=== PATIENT | male | born 1955 | race Caucasian/White ===

== ENCOUNTER → 2016-07-02 | Outpatient (CLI) | payer BC ==
[~2016-07-02] MED LIST: AMLO2.5T PO; BNC/4025 PO; OXYC-57 PO
[2016-07-02 13:38] LABS: BASO % 0.3 %; BASO ABS # 0.02 K/uL (0-0.2); COMPLETE YES; EOS % 2.5 %; HEMATOCRIT 42.4 % (42-52); IG% 0.1 %; LYMPH ABS # 1.98 K/uL (1.2-3.4); MEAN CELL VOLUME 85.8 fL (80-100); MEAN CORPUSCULAR HEMOGLOBIN 29.1 pg (25-34); MONO % 5.5 %; NEUT % 63.6 %; PLATELET COUNT 229 K/uL (130-400); RED BLOOD COUNT 4.94 M/uL (4.7-6.1); WHITE BLOOD COUNT 7.06 K/uL (4.8-10.8)
[2016-07-02 13:59] LABS: BLOOD UREA NITROGEN 18 mg/dl (7-18); CALCIUM 9.1 mg/dl (8.5-10.1); CARBON DIOXIDE 29 mmol/L (21-32); CHLORIDE 102 mmol/L (98-107); GLUCOSE 141 mg/dl (70-99); POTASSIUM 3.7 mmol/L (3.5-5.1); SODIUM 138 mmol/L (136-145)
[2016-07-02 14:00] LABS: ESTIMATED AVERAGE GLUCOSE 140 mg/dl; HA1C FLAG Normal (Normal)
== END | disposition home or self-care (01) ==
LOC: C.LABBC 12:06
PROVIDERS: ATTEND Internal Medicine Geriatric Medicine
DX: K40.90 Unilateral inguinal hernia, without obstruction or gangrene, not specified as recurrent (principal); E78.5 Hyperlipidemia, unspecified; Z01.818 Encounter for other preprocedural examination; J45.909 Unspecified asthma, uncomplicated; R73.9 Hyperglycemia, unspecified

== ENCOUNTER → 2016-07-19 | Outpatient (CLI) | payer BC ==
[~2016-07-19] VITALS: Ht 175.3 cm; Wt 112.5 kg
[2016-07-19 15:13] VITALS: Ht 175.3 cm; Wt 112.5 kg
== END | disposition home or self-care (01) ==
LOC: C.NRED 09:51
PROVIDERS: ATTEND Internal Medicine Geriatric Medicine
DX: E11.9 Type 2 diabetes mellitus without complications (principal)

== ENCOUNTER → 2016-10-11 | Outpatient (CLI) | payer BC ==
[~2016-10-11] VITALS: Ht 175.3 cm; Wt 115.0 kg
[2016-10-13 12:11] VITALS: Ht 175.3 cm; Wt 115.0 kg
== END | disposition home or self-care (01) ==
LOC: C.NRED 09:10
PROVIDERS: ATTEND Physician Assistant Medical
DX: E11.9 Type 2 diabetes mellitus without complications (principal)

== ENCOUNTER → 2016-12-14 | Outpatient (CLI) | payer BC ==
--- NOTE | 2016-12-14 15:53 | DIAGNOSTIC IMAGING REPORT ---
(CHEST) THORAX WITHOUT CLINICAL HISTORY: MULTIPLE PULMONARY NODULES COMPARISON STUDY: 12/17/2015 , 12/12/2014 CT DOSE: 552.39 mGycm TECHNIQUE: CT of the thorax was performed from the thoracic inlet to the lung bases. Images are reviewed in the axial, sagittal, and coronal planes. IV contrast was not administered for this examination. A dose lowering technique was utilized adhering to the principles of ALARA. FINDINGS: Thyroid: Imaged portions of the thyroid gland are normal in appearance. Thoracic aorta: The ascending thoracic aorta measures 38 mm. Heart: There are coronary artery calcifications present. Lungs and pleural spaces: No pleural effusions are visualized. There is a stable 5 x 7 mm left lower lobe pulmonary nodule as visualized in image #[id number]. There is a stable 3 mm right lower lobe pulmonary nodule as visualized in image #[id number]. There is a stable 5 mm left lower lobe pulmonary nodule as visualized in image #[id number]. No new or enlarging pulmonary nodules are visualized. There is no evidence of focal pulmonary consolidation. Mediastinum: There is no mediastinal lymphadenopathy. Laura: There is no evidence of pathologic hilar adenopathy given the limitations of a noncontrast study. Axilla: There is no evidence of pathologic axillary lymphadenopathy. Upper abdomen: Partially visualized upper abdominal viscera is within normal limits. Skeletal structures: There are no lytic or blastic osseous lesions. IMPRESSION: 1. Bilateral subcentimeter solid pulmonary nodules, demonstrating 2 year stability. These nodules are therefore felt to be benign. 2. No evidence of acute parenchymal consolidation. No evidence of pathologic adenopathy. Electronically signed by: Trevor Tyson M.D. 12/14/2016 3:51 PM Dictated Date/Time: 12/14/2016 3:41 PM
== END | disposition home or self-care (01) ==
LOC: C.CTS 15:22
PROVIDERS: ATTEND Internal Medicine Geriatric Medicine
DX: R91.8 Other nonspecific abnormal finding of lung field (principal)

== ENCOUNTER → 2017-04-28 | Outpatient (CLI) | payer BC ==
[2017-04-28 11:11] LABS: ALT/SGPT 30 U/L (12-78); AST/SGOT 14 U/L (15-37); BLOOD UREA NITROGEN 19 mg/dl (7-18); BUN/CREATININE RATIO 17.4 (10-20); CALCIUM 9.2 mg/dl (8.5-10.1); CARBON DIOXIDE 29 mmol/L (21-32); CHLORIDE 103 mmol/L (98-107); CREATININE 1.08 mg/dl (0.60-1.40); GLUCOSE 115 mg/dl (70-99); POTASSIUM 4.4 mmol/L (3.5-5.1); SODIUM 137 mmol/L (136-145)
[2017-04-28 11:18] LABS: BASO % 0.5 %; BASO ABS # 0.04 K/uL (0-0.2); COMPLETE YES; EOS % 2.8 %; HEMATOCRIT 41.3 % (42-52); IG% 0.1 %; LYMPH % 27.9 %; MEAN CELL VOLUME 88.4 fL (80-100); MEAN CORPUSCULAR HGB CONC 33.9 g/dl (32-36); MEAN PLATELET VOLUME 10.5 fL (7.4-10.4); MONO % 5.6 %; NEUT % 63.1 %; PLATELET COUNT 234 K/uL (130-400); RED BLOOD COUNT 4.67 M/uL (4.7-6.1); WHITE BLOOD COUNT 7.54 K/uL (4.8-10.8)
[2017-04-28 11:22] LABS: ALB/GLOB RATIO 1.2 (0.9-2); ALKALINE PHOSPHATASE 70 U/L (45-117); CHOLESTEROL 121 mg/dl (0-200); CHOLESTEROL/HDL RATIO 3.6; HDL CHOLESTEROL 34 mg/dl; LDL CHOLESTEROL CALCULATED 55 mg/dl; PROSTATE SPECIFIC ANTIGEN 0.624 ng/ml (0.000-4.000); TRIGLYCERIDES 159 mg/dl (0-150); VERY LOW DENSITY LIPOPROT CALC 32 mg/dl
[2017-04-28 11:25] LABS: ESTIMATED AVERAGE GLUCOSE 140 mg/dl; HA1C FLAG Normal (Normal)
== END | disposition home or self-care (01) ==
LOC: C.LABBC 09:02
PROVIDERS: ATTEND Internal Medicine Geriatric Medicine
DX: I10 Essential (primary) hypertension (principal); N20.0 Calculus of kidney; I25.10 Atherosclerotic heart disease of native coronary artery without angina pectoris; E78.5 Hyperlipidemia, unspecified; R91.8 Other nonspecific abnormal finding of lung field; N40.0 Benign prostatic hyperplasia without lower urinary tract symptoms; E11.9 Type 2 diabetes mellitus without complications; Z00.00 Encounter for general adult medical examination without abnormal findings

== ENCOUNTER → 2017-08-29 | Outpatient (CLI) | payer BC, OTHER ==
[2017-08-29 13:57] LABS: BLOOD UREA NITROGEN 15 mg/dl (7-18); CALCIUM 9.5 mg/dl (8.5-10.1); CARBON DIOXIDE 29 mmol/L (21-32); GLUCOSE 123 mg/dl (70-99); POTASSIUM 3.6 mmol/L (3.5-5.1); SODIUM 139 mmol/L (136-145)
[2017-08-29 14:08] LABS: HEMOGLOBIN A1C 6.6 % (4.5-5.6)
== END | disposition home or self-care (01) ==
LOC: C.LABBC 11:35
PROVIDERS: ATTEND Internal Medicine Geriatric Medicine
DX: I10 Essential (primary) hypertension (principal); E11.9 Type 2 diabetes mellitus without complications

== ENCOUNTER 2020-04-30 00:58 | Inpatient (IN) ==
[2020-04-30] MEDS ORDERED: HYDROmorphone INJ 1 MG/ML SYRINGE IV STA ×3 (01:17→03:40)
[2020-04-30] MEDS ORDERED: SODIUM CHLORIDE 0.9% 1000ML 1,000 ML IV ONE ×2 (01:17→02:19)
[2020-04-30] MEDS ORDERED: ONDANSETRON INJ 2 MG/ML 2 ML VIAL IV STA (01:17)
--- NOTE | 2020-04-30 01:23 | Emergency Department Note ---
Impression & Plan COVID-19, Intractable abdominal pain, Elevated liver enzymes, Acute GI bleeding ED Provider Note Name: RAMIRO DYE Age: 65 Sex: M Arrives Via: Walk-In Informant: Patient (difficult at times due to severely hard of hearing patient) ED Provider: Luis Au MD Chief Complaint: Abdominal pain Impression: Covid-19 Intractable abdominal pain Elevated Liver Enzymes Acute GI Bleed Medical Decision Makin yr old very hard of hearing male with history of CAD, DMII, DLP, HTN, Asthma and previous colon resection/appendecomty/cholecystecomty arrives for diffuse abdominal pain. Associated with bloody stool and nausea. Quite uncomfortable on arrival with diffuse vague abdominal TTP without peritonitis. Rectal exam without any stool though no over blood nor hemorrhoids noted. Fluids and IV pain medications given, CT abd/pel obtained and labs obtained. Requiring multiple rounds IV narcotics without clear etiology of pain. CT without intraabdominal issue though he does have ground glass findings on lung windows. Covid testing confirms COVID 19 positive. With continued abdominal pain, reported GI Bleeding, elevated LFTs and on top of this covid 19, discussed with hospitalist who will bring in for further management. No indication there is bleeding dyscrasia. He does not have evidence ischemia on CT a/p. There is no evidence sepsis at this time. CXR obtained consistent with COVID. No hypoxia thus hold on steroids/type-screen. Prior Medical Record and Triage/Nursing Notes reviewed by Me Additional history obtained from chart Differentials:infections, diverticulitis, UTI, obstruction, mesenteric ischemia, aortic pathology, inflammatory bowel disease, renal colic, PUD, pancreatitis, biliary pathology, hernia, volvulus, constipation, as well as other pathologies. amongst other pathologies. Vital Signs: reviewed and remarkable for no significant abnormalities Interventions: Saline lock, NSS Bolus, Dilaudid 1mg IV x 3, Pepcid 20mg IV Labs:Reviewed and remarkable for elevated LFTs, COVID Positive Imaging:[facility] Radiologist interpretation reviewed by me: "CT ABDOMEN & PELVIS With Contrast: Comparison to April 10, 2018. There are rounded patchy groundglass opacities in the periphery of the lung bases bilaterally typical of mild Covid 19 pneumonia. Slight biliary duct prominence postcholecystectomy. No choledocholithiasis is seen. Bowel loops are nondilated. There is mild diverticulosis of the lower left:. No acute inflammatory changes are seen within the abdomen or pelvis. Mild degenerative changes are seen throughout the thoracic spine. No fracture or subluxation. Radiologist: Mehdi Hooks MD" X ray results are stated below per my interpretation: Chest: 1 view: Bilateral patchy infiltrates consistent with viral etiology Consults:Dr Kevin PABLO Hospitalist Plan: Disposition:Hospitalization. Condition: Good History of Present Illness:65 yr old male arrives for evaluation of abdominal pain. Patient notes he woke up this morning (~18 hrs ago) with diffuse abdominal pain. Worse win LLQ. Associated with nausea. Gradually worsening throughout the day. Noted what looked like blood in his urine this evening as well as possibly blood in his stool. No history of this happening previously. Denies trauma, injuries, falls. Denies vomiting, sob, cp, headache, neck pain, back pain, dyuria, diarrhea, leg swelling, rash nor other symptoms. Movement makes worse, rest makes better. No medications taken for this. Notes previous a bdominal surgery including colon resection, appendectomy, cholecystectomy. ROS: See above HPI for pertinent positives & negatives. A total of 10 systems reviewed and were otherwise negative. Past Medical History:HTN, DMII, DLP, CAD, Asthma Past Surgical History:Hip replacement, colon resection, appendectomy, cholecy stectomy, umbilical hernia repair Family History:Father DMII/CAD Social History:Non smoker, no etoh, hard of hearing Home Medications:See Below Allergies:See Below Vitals:Blood Pressure: 147/80, Pulse 81, RR 16, T 36.8C, O2 97% on RA Physical Exam: GENERAL: Patient is uncomfortable appearing and in moderate distress. Dehydrated appearing EYES: No scleral icterus, unremarkable pupils. ENT: Mucous membranes dry, no nasal congestion. NECK: No masses appreciated, nomeningismus, trachea is midline. RESPIRATORY: No dyspnea. Clear to auscultation and equal bilaterally. No wheeze, no rhonchi. CARDIOVASCULAR: Regular rate and rhythm.No murmurs, rubs, gallops appreciated. GASTROINTESTINAL: Diffuse vague TTP, otherwise abdomen soft, no peritonitis.Bowel sounds positive.No masses appreciated. RECTAL: Normal tone, no stool. No hemorrhoids/bleeding appreciated. BACK: No midline tenderness, no CVA tenderness EXTREMITIES: Normal motion all extremities, no cyanosis, no edema. NEUROLOGIC: Severely hard of hearing. Alert and oriented, no acute motor or sensory deficits, no focal weakness, cranial nerves grossly intact. SKIN: No rash, no jaundice, no diaphoresis. PSYCH: Appropriate GCS: 15 ED Course: Times/Reassessments: continued waxing/waning pain throughout controlled for short times with pain medications. Luis Au MD Past Med/Surg History Medical History (Updated 04/30/20 @ 05:27 by Luis Au MD) Benign enlargement of prostate Coronary artery calcification Diverticulosis of colon Dyslipidemia Hx of GI malignancy NEC Hypertension Multiple pulmonary nodules benign, Last CT 2017 Obesity, Class II, BMI 35-39.9 Osteoarthritis Reactive airway disease Small bowel obstruction Surgical History (Updated 09/11/19 @ 14:45 by Giselle Martínez) H/O colonoscopy H/O umbilical hernia repair History of appendectomy History of colon resection (~2011) History of total hip replacement left Hx of cholecystectomy Family History (Updated 09/11/19 @ 14:47 by Giselle Martínez) Father Diabetes Unknown Cardiac disorder Social History (Updated 11/29/19 @ 14:53 by Giselle Martínez) Smoking Status: Never smoker Second Hand Exposure: No; Hx Alcohol Use: No Hx Substance Use: No Preferred Language: Singaporean Communication Ability: Effective Visual Impairment: Limited Hearing Ability: Hard of Hearing 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 Required: No Beliefs That Will Affect Care: None Current Living Situation: Alone Feels Safe at Home: Yes Assistive Devices: Glasses Allergies Allergies Allergy/AdvReac Type Severity Reaction Status Date / Time ketorolac Allergy Intermediate FACIAL Verified 04/30/20 02:08 SWELLING,RASH Penicillins Allergy Mild RASH Verified 04/30/20 02:08 Cipro Allergy Unknown HIVES Verified 03/20/14 07:25 ciprofloxacin Allergy Unknown HIVES Verified 04/30/20 02:08 levofloxacin [From Levaquin] AdvReac Intermediate nausea, Unverified 04/30/20 02:08 tremor codeine AdvReac Unknown "SICK AND Verified 04/30/20 02:08 LIGHTHEADED" morphine AdvReac Unknown "SICK AND Verified 04/30/20 02:08 LIGHTHEADED" Home Meds Home Medications Medication Instructions Recorded Confirmed aspirin 81 mg tablet,delayed 81 mg PO DAILY 11/29/19 04/30/20 release geriatric [id number] 1 tab PO DAILY 04/30/20 04/30/20 [[facility]] Previous Rx's Medication Instructions Recorded amlodipine 10 mg tablet 10 mg PO DAILY #90 tab 02/14/20 losartan 100 1 tab PO DAILY #90 tab 02/14/20 mg-hydrochlorothiazide 25 mg tablet atorvastatin 10 mg tablet 10 mg PO DAILY #90 tab 02/15/20 metformin 500 mg tablet,extended 500 mg PO QPM #90 tab 04/10/20 release 24 hr Results & Data (ED) Vital Signs Vital Signs - 24 hr 04/30/20 01:04 04/30/20 01:27 04/30/20 01:59 Temperature 36.8 C Temperature Source Temporal Artery Scan Pulse Rate 66 75 75 Pulse Rate from SpO2 Sensor Respiratory Rate 16 24 16 Respiratory Depth Normal Blood Pressure 168/88 H 171/93 H 138/87 Blood Pressure Mean 114 123 113 Pulse Oximetry 99 98 97 Oxygen Delivery Method Room Air Room Air Sepsis Recent Fever Within 48 Hours No Sepsis New/Unexplained Change in Mental Status No Sepsis Action Taken by Nursing No Action Required 04/30/20 02:02 04/30/20 03:00 04/30/20 03:30 Temperature Temperature Source Pulse Rate 77 61 79 Pulse Rate from SpO2 Sensor 57 L 65 Respiratory Rate 19 16 16 Respiratory Depth Blood Pressure 115/83 Blood Pressure Mean 92 Pulse Oximetry 95 96 94 Oxygen Delivery Method Sepsis Recent Fever Within 48 Hours Sepsis New/Unexplained Change in Mental Status Sepsis Action Taken by Nursing 04/30/20 03:39 04/30/20 03:40 04/30/20 04:00 Temperature Temperature Source Pulse Rate 81 73 69 Pulse Rate from SpO2 Sensor 79 66 70 Respiratory Rate 16 16 11 L Respiratory Depth Blood Pressure 147/80 H 143/93 H Blood Pressure Mean 106 109 Pulse Oximetry 97 97 93 Oxygen Delivery Method Sepsis Recent Fever Within 48 Hours Sepsis New/Unexplained Change in Mental Status Sepsis Action Taken by Nursing 04/30/20 04:01 04/30/20 04:30 Temperature Temperature Source Pulse Rate 68 78 Pulse Rate from SpO2 Sensor 67 Respiratory Rate 14 20 Respiratory Depth Blood Pressure Blood Pressure Mean Pulse Oximetry 95 Oxygen Delivery Method Sepsis Recent Fever Within 48 Hours Sepsis New/Unexplained Change in Mental Status Sepsis Action Taken by Nursing Laboratory Data Result diagrams: 04/30/20 01:19 04/30/20 01:19 Lab Results 04/30/20 04/30/20 04/30/20 Range/Units 00:19 01:19 01:19 WBC 4.61 L (4.8-10.8) K/uL RBC 5.18 (4.7-6.1) M/uL Hgb 15.9 (14.0-18.0) g/dL POC Hgb (14.0-18.0) g/dl Hct 44.7 (42-52) % POC Hct (42-52) % MCV 86.3 (80-100) fL MCH 30.7 (25-34) pg MCHC 35.6 (32-36) g/dL RDW Std Deviation 44.4 (36.4-46.3) fL RDW Coeff of Shanice 14.1 (11.5-14.5) % Plt Count 218 (130-400) K/uL MPV 10.4 (7.4-10.4) fL Immature Gran % (Auto) 0.2 % Neut % (Auto) 49.4 % Lymph % (Auto) 36.9 % Riley % (Auto) 11.3 % Eos % (Auto) 2.0 % Baso % (Auto) 0.2 % Neut # (Auto) 2.28 (1.4-6.5) K/uL Lymph # (Auto) 1.70 (1.2-3.4) K/uL Riley # (Auto) 0.52 (0.11-0.59) K/uL Eos # (Auto) 0.09 (0-0.5) K/uL Baso # (Auto) 0.01 (0-0.2) K/uL Immature Gran # (Auto) 0.01 (0.00-0.02) K/uL ESR 16 H (0-14) mm/hr PT 11.6 (9.0-12.0) Seconds INR 1.1 (0.9-1.1) APTT (21.0-31.0) Seconds PTT Ratio POC Sodium (135-144) mmol/L Sodium (136-145) mmol/L POC Potassium (3.3-5.0) mmol/L Potassium (3.5-5.1) mmol/L POC Chloride (101-112) mmol/L Chloride (98-107) mmol/L Carbon Dioxide (21-32) mmol/L POC Total CO2 (24-31) mmol/L Anion Gap (3-11) POC Anion Gap (16-25) mmol/L POC BUN (7-18) mg/dl BUN (7-18) mg/dl Creatinine (0.6-1.4) mg/dl POC Creatinine (0.6-1.3) mg/dl Est Cr Clr Drug Dosing ml/min Est GFR ( Amer) Est GFR (Non-Af Amer) BUN/Creatinine Ratio (10-20) Glucose (70-99) mg/dl POC Glucose (other) (70-99) mg/dl Calcium (8.5-10.1) mg/dl POC Ioniz Calcium Carlos (1.12-1.32) mmol/l Total Bilirubin (0.2-1) mg/dl Direct Bilirubin (0-0.2) mg/dl AST (15-37) U/L ALT (12-78) U/L Alkaline Phosphatase (45-117) U/L Total Creatine Kinase (39-308) U/L Total Protein (6.4-8.2) gm/dl Albumin (3.4-5.0) gm/dl Lipase (73-393) U/L Urine Color Urine Appearance (Clear) Urine pH (4.5-7.5) Ur Specific [place] (1.000-1.030) Urine Protein (Negative) Urine Glucose (UA) (Negative) Urine Ketones (Negative) Urine Blood (Negative) Urine Nitrite (Negative) Urine Bilirubin (Negative) Urine Urobilinogen (Negative) Ur Leukocyte Esterase (Negative) Urine WBC (Auto) (0-5) /hpf Urine RBC (Auto) (0-4) /hpf U Hyaline Cast (Auto) (0-5) /lpf U Epithel Cells (Auto) (0-5) /lpf Urine Bacteria (Auto) (Negative) COVID-19 Eval Order Hep Bs Antigen (Neg) Hepatitis C Antibody (Neg) SARS-CoV-2, RNA, NAAT (NEGATIVE) 04/30/20 04/30/20 04/30/20 Range/Units 01:19 01:19 01:19 WBC (4.8-10.8) K/uL RBC (4.7-6.1) M/uL Hgb (14.0-18.0) g/dL POC Hgb (14.0-18.0) g/dl Hct (42-52) % POC Hct (42-52) % MCV (80-100) fL MCH (25-34) pg MCHC (32-36) g/dL RDW Std Deviation (36.4-46.3) fL RDW Coeff of Shanice (11.5-14.5) % Plt Count (130-400) K/uL MPV (7.4-10.4) fL Immature Gran % (Auto) % Neut % (Auto) % Lymph % (Auto) % Riley % (Auto) % Eos % (Auto) % Baso % (Auto) % Neut # (Auto) (1.4-6.5) K/uL Lymph # (Auto) (1.2-3.4) K/uL Riley # (Auto) (0.11-0.59) K/uL Eos # (Auto) (0-0.5) K/uL Baso # (Auto) (0-0.2) K/uL Immature Gran # (Auto) (0.00-0.02) K/uL ESR (0-14) mm/hr PT (9.0-12.0) Seconds INR (0.9-1.1) APTT 32.6 H (21.0-31.0) Seconds PTT Ratio 1.2 POC Sodium (135-144) mmol/L Sodium 142 (136-145) mmol/L POC Potassium (3.3-5.0) mmol/L Potassium 3.6 (3.5-5.1) mmol/L POC Chloride (101-112) mmol/L Chloride 108 H (98-107) mmol/L Carbon Dioxide 28 (21-32) mmol/L POC Total CO2 (24-31) mmol/L Anion Gap 6.0 (3-11) POC Anion Gap (16-25) mmol/L POC BUN (7-18) mg/dl BUN 18 (7-18) mg/dl Creatinine 0.98 (0.6-1.4) mg/dl POC Creatinine (0.6-1.3) mg/dl Est Cr Clr Drug Dosing 89.4 ml/min Est GFR ( Amer) 92.1 Est GFR (Non-Af Amer) 79.5 BUN/Creatinine Ratio 18.8 (10-20) Glucose 113 H (70-99) mg/dl POC Glucose (other) (70-99) mg/dl Calcium 9.3 (8.5-10.1) mg/dl POC Ioniz Calcium Carlos (1.12-1.32) mmol/l Total Bilirubin 0.6 (0.2-1) mg/dl Direct Bilirubin 0.2 (0-0.2) mg/dl AST 161 H (15-37) U/L ALT 307 H (12-78) U/L Alkaline Phosphatase 95 (45-117) U/L Total Creatine Kinase 61 (39-308) U/L Total Protein 7.3 (6.4-8.2) gm/dl Albumin 3.9 (3.4-5.0) gm/dl Lipase 88 (73-393) U/L Urine Color Urine Appearance (Clear) Urine pH (4.5-7.5) Ur Specific [place] (1.000-1.030) Urine Protein (Negative) Urine Glucose (UA) (Negative) Urine Ketones (Negative) Urine Blood (Negative) Urine Nitrite (Negative) Urine Bilirubin (Negative) Urine Urobilinogen (Negative) Ur Leukocyte Esterase (Negative) Urine WBC (Auto) (0-5) /hpf Urine RBC (Auto) (0-4) /hpf U Hyaline Cast (Auto) (0-5) /lpf U Epithel Cells (Auto) (0-5) /lpf Urine Bacteria (Auto) (Negative) COVID-19 Eval Order Hep Bs Antigen Neg (Neg) Hepatitis C Antibody Neg (Neg) SARS-CoV-2, RNA, NAAT (NEGATIVE) 04/30/20 04/30/20 04/30/20 Range/Units 01:29 02:33 02:33 WBC (4.8-10.8) K/uL RBC (4.7-6.1) M/uL Hgb (14.0-18.0) g/dL POC Hgb 16.0 (14.0-18.0) g/dl Hct (42-52) % POC Hct 47 (42-52) % MCV (80-100) fL MCH (25-34) pg MCHC (32-36) g/dL RDW Std Deviation (36.4-46.3) fL RDW Coeff of Shanice (11.5-14.5) % Plt Count (130-400) K/uL MPV (7.4-10.4) fL Immature Gran % (Auto) % Neut % (Auto) % Lymph % (Auto) % Riley % (Auto) % Eos % (Auto) % Baso % (Auto) % Neut # (Auto) (1.4-6.5) K/uL Lymph # (Auto) (1.2-3.4) K/uL Riley # (Auto) (0.11-0.59) K/uL Eos # (Auto) (0-0.5) K/uL Baso # (Auto) (0-0.2) K/uL Immature Gran # (Auto) (0.00-0.02) K/uL ESR (0-14) mm/hr PT (9.0-12.0) Seconds INR (0.9-1.1) APTT (21.0-31.0) Seconds PTT Ratio POC Sodium 141 (135-144) mmol/L Sodium (136-145) mmol/L POC Potassium 3.3 (3.3-5.0) mmol/L Potassium (3.5-5.1) mmol/L POC Chloride 105 (101-112) mmol/L Chloride (98-107) mmol/L Carbon Dioxide (21-32) mmol/L POC Total CO2 27 (24-31) mmol/L Anion Gap (3-11) POC Anion Gap 13.0 L (16-25) mmol/L POC BUN 19 H (7-18) mg/dl BUN (7-18) mg/dl Creatinine (0.6-1.4) mg/dl POC Creatinine 0.9 (0.6-1.3) mg/dl Est Cr Clr Drug Dosing ml/min Est GFR ( Amer) Est GFR (Non-Af Amer) BUN/Creatinine Ratio (10-20) Glucose (70-99) mg/dl POC Glucose (other) 112 H (70-99) mg/dl Calcium (8.5-10.1) mg/dl POC Ioniz Calcium Carlos 1.13 (1.12-1.32) mmol/l Total Bilirubin (0.2-1) mg/dl Direct Bilirubin (0-0.2) mg/dl AST (15-37) U/L ALT (12-78) U/L Alkaline Phosphatase (45-117) U/L Total Creatine Kinase (39-308) U/L Total Protein (6.4-8.2) gm/dl Albumin (3.4-5.0) gm/dl Lipase (73-393) U/L Urine Color Yellow Urine Appearance Clear (Clear) Urine pH 5.0 (4.5-7.5) Ur Specific [place] > 1.045 H (1.000-1.030) Urine Protein 1+ H (Negative) Urine Glucose (UA) Negative (Negative) Urine Ketones Trace H (Negative) Urine Blood Negative (Negative) Urine Nitrite Negative (Negative) Urine Bilirubin Negative (Negative) Urine Urobilinogen Negative (Negative) Ur Leukocyte Esterase Negative (Negative) Urine WBC (Auto) 0 (0-5) /hpf Urine RBC (Auto) 0-4 (0-4) /hpf U Hyaline Cast (Auto) 0 (0-5) /lpf U Epithel Cells (Auto) 0-5 (0-5) /lpf Urine Bacteria (Auto) Negative (Negative) COVID[facility]19 [facility] Antigen (Neg) Hepatitis C Antibody (Neg) SARS-CoV-2, RNA, NAAT (NEGATIVE) 04/30/20 Range/Units 02:33 WBC (4.8-10.8) K/uL RBC (4.7-6.1) M/uL Hgb (14.0-18.0) g/dL POC Hgb (14.0-18.0) g/dl Hct (42-52) % POC Hct (42-52) % MCV (80-100) fL MCH (25-34) pg MCHC (32-36) g/dL RDW Std Deviation (36.4-46.3) fL RDW Coeff of Shanice (11.5-14.5) % Plt Count (130-400) K/uL MPV (7.4-10.4) fL Immature Gran % (Auto) % Neut % (Auto) % Lymph % (Auto) % Riley % (Auto) % Eos % (Auto) % Baso % (Auto) % Neut # (Auto) (1.4-6.5) K/uL Lymph # (Auto) (1.2-3.4) K/uL Riley # (Auto) (0.11-0.59) K/uL Eos # (Auto) (0-0.5) K/uL Baso # (Auto) (0-0.2) K/uL Immature Gran # (Auto) (0.00-0.02) K/uL ESR (0-14) mm/hr PT (9.0-12.0) Seconds INR (0.9-1.1) APTT (21.0-31.0) Seconds PTT Ratio POC Sodium (135-144) mmol/L Sodium (136-145) mmol/L POC Potassium (3.3-5.0) mmol/L Potassium (3.5-5.1) mmol/L POC Chloride (101-112) mmol/L Chloride (98-107) mmol/L Carbon Dioxide (21-32) mmol/L POC Total CO2 (24-31) mmol/L Anion Gap (3-11) POC Anion Gap (16-25) mmol/L POC BUN (7-18) mg/dl BUN (7-18) mg/dl Creatinine (0.6-1.4) mg/dl POC Creatinine (0.6-1.3) mg/dl Est Cr Clr Drug Dosing ml/min Est GFR ( Amer) Est GFR (Non-Af Amer) BUN/Creatinine Ratio (10-20) Glucose (70-99) mg/dl POC Glucose (other) (70-99) mg/dl Calcium (8.5-10.1) mg/dl POC Ioniz Calcium Carlos (1.12-1.32) mmol/l Total Bilirubin (0.2-1) mg/dl Direct Bilirubin (0-0.2) mg/dl AST (15-37) U/L ALT (12-78) U/L Alkaline Phosphatase (45-117) U/L Total Creatine Kinase (39-308) U/L Total Protein (6.4-8.2) gm/dl Albumin (3.4-5.0) gm/dl Lipase (73-393) U/L Urine Color Urine Appearance (Clear) Urine pH (4.5-7.5) Ur Specific [place] (1.000-1.030) Urine Protein (Negative) Urine Glucose (UA) (Negative) Urine Ketones (Negative) Urine Blood (Negative) Urine Nitrite (Negative) Urine Bilirubin (Negative) Urine Urobilinogen (Negative) Ur Leukocyte Esterase (Negative) Urine WBC (Auto) (0-5) /hpf Urine RBC (Auto) (0-4) /hpf U Hyaline Cast (Auto) (0-5) /lpf U Epithel Cells (Auto) (0-5) /lpf Urine Bacteria (Auto) (Negative) COVID-19 Eval Order Hep Bs Antigen (Neg) Hepatitis C Antibody (Neg) SARS-CoV-2, RNA, NAAT POSITIVE A* (NEGATIVE) Administered Medications Amlodipine Besylate (Amlodipine Besylate 5 Mg Tab) 10 mg PO DAILY LUMA Stop: 05/30/20 08:59 Last Admin: 04/30/20 08:46 Dose: 10 mg Documented by: [id number] Potassium Chloride/Sodium Chloride (Normal Saline W/20 Meq Kcl) 20 meq in 1,000 mls @ 80 mls/hr IV .[id number] LUMA Stop: 05/30/20 04:59 Last Admin: 04/30/20 19:51 Dose: 80 mls/hr Documented by: [id number] Infusion: 04/30/20 19:50 Dose: 0 mls/hr Documented by: [id number] Infusion: 04/30/20 12:17 Dose: 80 mls/hr Documented by: [id number] Infusion: 04/30/20 11:39 Dose: 0 mls/hr Documented by: [id number] Admin: 04/30/20 05:28 Dose: 80 mls/hr Documented by: [id number] Dexamethasone 6 mg/ Syringe 1.5 mls @ 1 mls/min IV DAILY LUMA Stop: 05/30/20 04:59 Last Admin: 04/30/20 05:28 Dose: 1 mls/min Documented by: [id number] Famotidine 20 mg/ Syringe 5 mls @ 2.5 mls/min IV Q12H LUMA Stop: 05/30/20 08:59 Last Admin: 04/30/20 19:51 Dose: 2.5 mls/min Documented by: [id number] Admin: 04/30/20 10:17 Dose: 2.5 mls/min Documented by: [id number] Insulin Aspart (Insulin Aspart 100 Units/Ml 3 Ml Pen) 0 units SC Q6 LUMA Stop: 05/30/20 07:29 Last Admin: 05/01/20 00:19 Dose: Not Given Documented by: [id number] Cosigned by: [id number] Admin: 04/30/20 18:29 Dose: Not Given Documented by: [id number] Cosigned by: [id number] Admin: 04/30/20 12:19 Dose: 1 units Documented by: [id number] Cosigned by: [id number] Admin: 04/30/20 08:47 Dose: 1 units Documented by: [id number] Cosigned by: [id number] Multivitamins/Minerals (Cerovite Adv Formula Tab) 1 tab PO DAILY LUMA Stop: 05/30/20 08:59 Last Admin: 04/30/20 08:46 Dose: 1 tab Documented by: [id number] Ondansetron HCl (Ondansetron Inj 2 Mg/Ml 2 Ml Vial) 4 mg IV Q6H PRN PRN Reason: Nausea Stop: 05/30/20 06:19 Last Admin: 04/30/20 06:33 Dose: 4 mg Documented by: [id number] Pantoprazole Sodium (Pantoprazole 40 Mg Tab) 40 mg PO BID LUMA Stop: 05/30/20 08:59 Last Admin: 04/30/20 19:52 Dose: 40 mg Documented by: [id number] Admin: 04/30/20 10:17 Dose: 40 mg Documented by: [id number] Discontinued Medications Hydromorphone HCl (Hydromorphone Inj 1 Mg/Ml Syringe) 1 mg IV NOW STA Stop: 04/30/20 01:18 Last Admin: 04/30/20 01:23 Dose: 1 mg Documented by: [id number] Hydromorphone HCl (Hydromorphone Inj 1 Mg/Ml Syringe) 1 mg IV NOW STA Stop: 04/30/20 02:20 Last Admin: 04/30/20 02:29 Dose: 1 mg Documented by: [id number] Hydromorphone HCl (Hydromorphone Inj 1 Mg/Ml Syringe) 1 mg IV NOW STA Stop: 04/30/20 03:41 Last Admin: 04/30/20 03:48 Dose: 1 mg Documented by: [id number] Sodium Chloride (Nss 1000ml) 1,000 mls @ 999 mls/hr IV .Q1H1M ONE Stop: 04/30/20 02:17 Last Infusion: 04/30/20 02:29 Dose: 0 mls/hr Documented by: [id number] Admin: 04/30/20 01:23 Dose: 999 mls/hr Documented by: [id number] Sodium Chloride (Nss 1000ml) 1,000 mls @ 999 mls/hr IV .Q1H1M ONE Stop: 04/30/20 03:19 Last Infusion: 04/30/20 03:36 Dose: 0 mls/hr Documented by: [id number] Admin: 04/30/20 02:29 Dose: 999 mls/hr Documented by: [id number] Famotidine (Pepcid 20mg Iv Push) 20 mg in 5 mls @ 2.5 mls/min IV NOW STA Stop: 04/30/20 03:41 Last Admin: 04/30/20 03:48 Dose: 2.5 mls/min Documented by: [id number] Ioversol (Ioversol 100ml) 100 ml IV ONCE ONE Stop: 04/30/20 01:37 Last Admin: 04/30/20 01:37 Dose: 93 ml Documented by: [id number] Ondansetron HCl (Ondansetron Inj 2 Mg/Ml 2 Ml Vial) 4 mg IV NOW STA Stop: 04/30/20 01:18 Last Admin: 04/30/20 01:23 Dose: 4 mg Documented by: [id number] Discharge Plan Visit Data Chief Complaint: Abdominal Pain Stated Complaint: ABD PAIN, BLEEDING ED Provider: Luis Au Discharge Problem: COVID-19, Intractable abdominal pain, Elevated liver enzymes, Acute GI bleeding Patient Disposition: Admitted As Inpatient Discharge Instructions Interventions: ED Discharge Assessment Last Done: 04/30/20 05:45
[2020-04-30] MEDS ORDERED: IOVERSOL 100ml IV ONE (01:36)
[2020-04-30 01:39] LABS: Basophils # (auto) 0.01 K/uL (0-0.2); Basophils % (auto) 0.2 %; Eosinophils # (auto) 0.09 K/uL (0-0.5); Hematocrit (blood only) 44.7 % (42-52); Hemoglobin 15.9 g/dL (14.0-18.0); Immature Granulocytes # (auto) 0.01 K/uL (0.00-0.02); Immature Granulocytes % (auto) 0.2 %; Lymphocytes % (auto) 36.9 %; Mean Corpuscular Hemoglobin 30.7 pg (25-34); Mean Corpuscular Hgb Conc 35.6 g/dL (32-36); Mean Corpuscular Volume 86.3 fL (80-100); Mean Platelet Volume 10.4 fL (7.4-10.4); Monocytes # (auto) 0.52 K/uL (0.11-0.59); Monocytes % (auto) 11.3 %; Neutrophils # (auto) 2.28 K/uL (1.4-6.5); Neutrophils % (auto) 49.4 %; Platelet Count 218 K/uL (130-400); RDW Coefficient of Variation 14.1 % (11.5-14.5); RDW Standard Deviation 44.4 fL (36.4-46.3); Red Blood Count 5.18 M/uL (4.7-6.1); White Blood Count 4.61 K/uL (4.8-10.8)
[2020-04-30 01:42] LABS: iSTAT Creatinine 0.9 mg/dl (0.6-1.3); iSTAT Ionized Calcium 1.13 mmol/l (1.12-1.32); iSTAT Potassium 3.3 mmol/L (3.3-5.0)
[2020-04-30 01:47] LABS: INR 1.1 (0.9-1.1); Prothrombin Time 11.6 Seconds (9.0-12.0)
[2020-04-30 02:21] LABS: Albumin Level 3.9 gm/dl (3.4-5.0); BUN Creatinine Ratio 18.8 (10-20); Bilirubin,Total 0.6 mg/dl (0.2-1); Calcium 9.3 mg/dl (8.5-10.1); Creatinine Clr Calc Pharmacy 89.4 ml/min; Est GFR (African American) 92.1; Est GFR (Non-African American) 79.5; Total Protein 7.3 gm/dl (6.4-8.2)
[2020-04-30 02:29] LABS: Potassium 3.6 mmol/L (3.5-5.1)
[2020-04-30 02:52] LABS: Bilirubin Direct 0.2 mg/dl (0-0.2)
[2020-04-30 02:53] LABS: Appearance Urine Clear (Clear); Bacteria Urine Automated Negative (Negative); Bilirubin Urine Negative (Negative); Blood Urine Negative (Negative); Cast Urine Automated 0 /lpf (0-5); Color Urine Yellow; Epithelial Cell Urine Auto 0-5 /lpf (0-5); Glucose Urine UA Negative (Negative); Ketones Urine Trace (Negative); Leukocyte Esterase Urine Negative (Negative); Nitrite Urine Negative (Negative); Protein Urine 1+ (Negative); RBC Urine Automated 0-4 /hpf (0-4); Specific Gravity Urine > 1.045 (1.000-1.030); Urobilinogen Urine Negative (Negative); WBC Urine Automated 0 /hpf (0-5)
[2020-04-30] MEDS ORDERED: FAMOTIDINE 20MG IV PUSH 20 MG/5 ML SYR IV STA (03:40)
[2020-04-30 04:28] LABS: Partial Thromboplastin Ratio 1.2; Partial Thromboplastin Time 32.6 Seconds (21.0-31.0)
[2020-04-30] MEDS ORDERED: ALBUTEROL HFA 8 GM INHALER INH PRN (05:10)
--- NOTE | 2020-04-30 05:14 | History & Physical Report ---
Date of Service April 30, 2020 Assessment & Plan (1) Abdominal pain: Abdominal pain/transaminitis/self-reported blood in stool with negative Hemoccult in ED- NPO Famotidine 20 mg IV every 12 hours Pantoprazole 40 mg p.o. twice daily NSS + KCl 20 mEq at 80 mils per hour Order sedimentation rate, LEONEL, acute hepatitis profile CT of abdomen and pelvis does not show etiology. Liver function tests were normal on 09/06/2018 Options include ordering MRCP, and more complete abnormal LFT work-up if the above laboratories are normal Consult gastroenterology for their opinion. Present on Admission?: Yes (2) Transaminitis: See above Present on Admission?: Yes (3) Type 2 diabetes mellitus: Hold Metformin. Placed on Accu-Cheks before meals and at bedtime/every 6 hours, with NovoLog coverage per scale Present on Admission?: Yes (4) Pneumonia due to COVID-19 virus: Pneumonia due to COVID-19 virus without hypoxia/reactive airways disease history- Place on dexamethasone 6 mg IV daily Ventolin HFA 2 puffs every 2 hours as needed Present on Admission?: Yes (5) Reactive airway disease: See above Present on Admission?: Yes (6) Hypertension: Hold aspirin, and losartan/HCTZ Continue amlodipine with hold parameters Present on Admission?: Yes (7) Dyslipidemia: Hold atorvastatin while n.p.o. Present on Admission?: Yes History of Present Illness Chief Complaint: The patient presents to the emergency department with complaint of epigastric and generalized abdominal pain that began upon awakening in the morning, and later developed nausea without vomiting. He also notes what he thought look like blood in his urine and stool. Primary Care Provider: Shawn Gnozales, DO abnormal laboratoriesThe patient is a 65-year-old male with a past medical history including BPH, obesity, dyslipidemia, hypertension, osteoarthritis, reactive airways disease, and diabetes mellitus type 2. He presents with symptoms as noted above. He cannot associate them with food intake. He received several doses of Dilaudid in the ED without change in his pain. Work-up in the emergency department included abnormal laboratories: Glucose 116, AST 161, ALT 307, urine specific gravity > 1.045, and COVID-[address] scan of abdomen and pelvis with contrast showed rounded patchy groundglass opacities in the periphery of the lung bases bilaterally typical mild COVID-19 pneumonia. There was slight biliary duct prominence postcholecystectomy. There was mild sigmoid diverticulosis without inflammation. Allergies Allergy/AdvReac Type Severity Reaction Status Date / Time ketorolac Allergy Intermediate FACIAL Verified 04/30/20 02:08 SWELLING,RASH Penicillins Allergy Mild RASH Verified 04/30/20 02:08 Cipro Allergy Unknown HIVES Verified 03/20/14 07:25 ciprofloxacin Allergy Unknown HIVES Verified 04/30/20 02:08 levofloxacin [From Levaquin] AdvReac Intermediate nausea, Unverified 04/30/20 02:08 tremor codeine AdvReac Unknown "SICK AND Verified 04/30/20 02:08 LIGHTHEADED" morphine AdvReac Unknown "SICK AND Verified 04/30/20 02:08 LIGHTHEADED" Home Medications Medication Instructions Recorded Confirmed Type aspirin 81 mg tablet,delayed 81 mg PO DAILY 11/29/19 04/30/20 History release amlodipine 10 mg tablet 10 mg PO DAILY #90 tab 02/14/20 04/30/20 Rx losartan 100 1 tab PO DAILY #90 tab 02/14/20 04/30/20 Rx mg-hydrochlorothiazide 25 mg tablet atorvastatin 10 mg tablet 10 mg PO DAILY #90 tab 02/15/20 04/30/20 Rx metformin 500 mg tablet,extended 500 mg PO QPM #90 tab 04/10/20 04/30/20 Rx release 24 hr geriatric [id number] 1 tab PO DAILY 04/30/20 04/30/20 History [[facility]] Past Med/Surg History Medical History (Updated 04/30/20 @ 05:03 by Hal Brown MD) Benign enlargement of prostate Coronary artery calcification Diverticulosis of colon Dyslipidemia Hx of GI malignancy NEC Hypertension Multiple pulmonary nodules benign, Last CT 2017 Obesity, Class II, BMI 35-39.9 Osteoarthritis Reactive airway disease Small bowel obstruction Surgical History (Updated 09/11/19 @ 14:45 by Giselle Martínez) H/O colonoscopy H/O umbilical hernia repair History of appendectomy History of colon resection (~2011) History of total hip replacement left Hx of cholecystectomy Family History (Updated 09/11/19 @ 14:47 by Giselle Martínez) Father Diabetes Unknown Cardiac disorder Social History (Updated 11/29/19 @ 14:53 by Giselle Martínez) Smoking Status: Never smoker Hx Substance Use: No Preferred Language: [place] Communication Ability: Effective Visual Impairment: Limited Hearing Ability: Hard of Hearing Feels Safe at Home: Yes Review of Systems Review of Systems: The patient denies chest pain, palpitations, shortness of breath, dyspnea on exertion, cough, lower extremity swelling, sore throat, fevers, chills, sweats, vomiting, diarrhea , constipation, dysuria, urinary frequency or urgency, lightheadedness, dizziness, headache, memory loss, loss of consciousness, rash, abnormal bruising or bleeding, imbalance, focal weakness, numbness or tingling in arms or legs, generalized arthralgias or myalgias, back or neck pain, or night sweats. The review of systems is otherwise negative other than for that already noted above, and at least 10 systems have been reviewed. Physical Exam Physical Exam: The patient is awake, alert and oriented 3, very hard of hearing, normocephalic and atraumatic, lying in bed and in no acute distress. HEENT--PERRL, EOMI, mucous membranes and oropharynx dry. Neck--supple. No JVD. No bruits. Thyroid normal, trachea midline, no adenopathy. Heart--normal S1 and S2. No murmurs, rubs or gallops. Lungs--clear bilaterally, no respiratory distress, no accessory muscle use. Abdomen--normal bowel sounds and soft. Generalized mild tenderness mildly tympanic. Obese Extremities--no cyanosis or clubbing. No edema. Dermatologic--normal skin turgor, normal color, no abnormal lymph nodes, no rash. Neurologic--cranial nerves II through XII grossly intact. Rheumatologic--normal range of motion. Psychiatric--normal affect. Results & Data Results & Data ([facility]) Vital Signs (Past 12 Hours) Vital Signs Temp Pulse Resp BP Pulse Ox 04/30/20 03:39 81 16 147/80 H 97 04/30/20 03:30 79 16 94 04/30/20 03:00 61 16 96 04/30/20 02:02 77 19 115/83 95 04/30/20 01:59 75 16 138/87 97 04/30/20 01:27 75 24 171/93 H 98 04/30/20 01:04 98.2 F 66 16 168/88 H 99 Laboratory Results Laboratory Results WBC 4.61 K/uL (4.8-10.8) L 04/30/20 01:19 RBC 5.18 M/uL (4.7-6.1) 04/30/20 01:19 Hgb 15.9 g/dL (14.0-18.0) 04/30/20 01:19 POC Hgb 16.0 g/dl (14.0-18.0) 04/30/20 01:29 Hct 44.7 % (42-52) 04/30/20 01:19 POC Hct 47 % (42-52) 04/30/20 01:29 MCV 86.3 fL (80-100) 04/30/20 01:19 MCH 30.7 pg (25-34) 04/30/20 01:19 MCHC 35.6 g/dL (32-36) 04/30/20 01:19 RDW Std Deviation 44.4 fL (36.4-46.3) 04/30/20 01:19 RDW Coeff of Shanice 14.1 % (11.5-14.5) 04/30/20 01:19 Plt Count 218 K/uL (130-400) 04/30/20 01:19 MPV 10.4 fL (7.4-10.4) 04/30/20 01:19 Immature Gran % (Auto) 0.2 % 04/30/20 01:19 Neut % (Auto) 49.4 % 04/30/20 01:19 Lymph % (Auto) 36.9 % 04/30/20 01:19 Parker % (Auto) 11.3 % 04/30/20 01:19 Eos % (Auto) 2.0 % 04/30/20 01:19 Baso % (Auto) 0.2 % 04/30/20 01:19 Neut # (Auto) 2.28 K/uL (1.4-6.5) 04/30/20 01:19 Lymph # (Auto) 1.70 K/uL (1.2-3.4) 04/30/20 01:19 Parker # (Auto) 0.52 K/uL (0.11-0.59) 04/30/20 01:19 Eos # (Auto) 0.09 K/uL (0-0.5) 04/30/20 01:19 Baso # (Auto) 0.01 K/uL (0-0.2) 04/30/20 01:19 Immature Gran # (Auto) 0.01 K/uL (0.00-0.02) 04/30/20 01:19 PT 11.6 Seconds (9.0-12.0) 04/30/20 01:19 INR 1.1 (0.9-1.1) 04/30/20 01:19 APTT 32.6 Seconds (21.0-31.0) H 04/30/20 01:19 PTT Ratio 1.2 04/30/20 01:19 POC Sodium 141 mmol/L (135-144) 04/30/20 01:29 Sodium 142 mmol/L (136-145) 04/30/20 01:19 POC Potassium 3.3 mmol/L (3.3-5.0) 04/30/20 01:29 Potassium 3.6 mmol/L (3.5-5.1) 04/30/20 01:19 POC Chloride 105 mmol/L (101-112) 04/30/20 01:29 Chloride 108 mmol/L (98-107) H 04/30/20 01:19 Carbon Dioxide 28 mmol/L (21-32) 04/30/20 01:19 POC Total CO2 27 mmol/L (24-31) 04/30/20 01:29 Anion Gap 6.0 (3-11) 04/30/20 01:19 POC Anion Gap 13.0 mmol/L (16-25) L 04/30/20 01:29 POC BUN 19 mg/dl (7-18) H 04/30/20 01:29 BUN 18 mg/dl (7-18) 04/30/20 01:19 Creatinine 0.98 mg/dl (0.6-1.4) 04/30/20 01:19 POC Creatinine 0.9 mg/dl (0.6-1.3) 04/30/20 01:29 Est Cr Clr Drug Dosing 89.4 ml/min 04/30/20 01:19 Est GFR ( Amer) 92.1 04/30/20 01:19 Est GFR (Non-Af Amer) 79.5 04/30/20 01:19 BUN/Creatinine Ratio 18.8 (10-20) 04/30/20 01:19 Glucose 113 mg/dl (70-99) H 04/30/20 01:19 POC Glucose (other) 112 mg/dl (70-99) H 04/30/20 01:29 Calcium 9.3 mg/dl (8.5-10.1) 04/30/20 01:19 POC Ioniz Calcium Carlos 1.13 mmol/l (1.12-1.32) 04/30/20 01:29 Total Bilirubin 0.6 mg/dl (0.2-1) 04/30/20 01:19 Direct Bilirubin 0.2 mg/dl (0-0.2) 04/30/20 01:19 AST 161 U/L (15-37) H 04/30/20 01:19 ALT 307 U/L (12-78) H 04/30/20 01:19 Alkaline Phosphatase 95 U/L (45-117) 04/30/20 01:19 Total Creatine Kinase 61 U/L (39-308) 04/30/20 01:19 Total Protein 7.3 gm/dl (6.4-8.2) 04/30/20 01:19 Albumin 3.9 gm/dl (3.4-5.0) 04/30/20 01:19 Lipase 88 U/L (73-393) 04/30/20 01:19 Urine Color Yellow 04/30/20 02:33 Urine Appearance Clear (Clear) 04/30/20 02:33 Urine pH 5.0 (4.5-7.5) 04/30/20 02:33 Ur Specific [place] > 1.045 (1.000-1.030) H 04/30/20 02:33 Urine Protein 1+ (Negative) H 04/30/20 02:33 Urine Glucose (UA) Negative (Negative) 04/30/20 02:33 Urine Ketones Trace (Negative) H 04/30/20 02:33 Urine Blood Negative (Negative) 04/30/20 02:33 Urine Nitrite Negative (Negative) 04/30/20 02:33 Urine Bilirubin Negative (Negative) 04/30/20 02:33 Urine Urobilinogen Negative (Negative) 04/30/20 02:33 Ur Leukocyte Esterase Negative (Negative) 04/30/20 02:33 Urine WBC (Auto) 0 /hpf (0-5) 04/30/20 02:33 Urine RBC (Auto) 0-4 /hpf (0-4) 04/30/20 02:33 U Hyaline Cast (Auto) 0 /lpf (0-5) 04/30/20 02:33 U Epithel Cells (Auto) 0-5 /lpf (0-5) 04/30/20 02:33 Urine Bacteria (Auto) Negative (Negative) 04/30/20 02:33 COVID-19 Eval Order Covid19 IDNow [facility] 04/30/20 02:33 SARS-CoV-2, RNA, NAAT POSITIVE (NEGATIVE) A* 04/30/20 02:33 Diagnostic Findings [facility] Patient: RAMIRO DYE (Male) : 51 Status: ER Date: 04/30/20 01:58 Room #: History: PAIN IN ABD, R/O BOWEL OBSTRUCTION Slices: [phone] Priors: Tech: Jose Dawson @ [phone] Exams: CT ABDOMEN & PELVIS With Contrast Contrast: IV Amt: 93 ML OPTIRAY 320 Accession Numbers: [id number] Preliminary Findings Only See Final Report For Complete Findings CT ABDOMEN & PELVIS With Contrast: Comparison to April 10, 2018. There are rounded patchy groundglass opacities in the periphery of the lung bases bilaterally typical of mild Covid 19 pneumonia. Slight biliary duct prominence postcholecystectomy. No choledocholithiasis is seen. Bowel loops are nondilated. There is mild diverticulosis of the lower left:. No acute inflammatory changes are seen within the abdomen or pelvis. Mild degenerative changes are seen throughout the thoracic spine. No fracture or subluxation. Radiologist: Mehdi Hooks MD Study ready at 02:03 and initial results transmitted at 02:11 *This report constitutes a preliminary interpretation only. Non-acute findings felt to be unrelated to the clinical presentation may not be discussed in this report. The study will be interpreted and a final report will be generated by the local Radiologist the following shift. To reach the hospital radiology department call [phone]. If a discrepancy is found between the preliminary and final interpretations of this study, please notify us via our Client Portal at [email or web address] QA Exams.You can also fax this report with a description of the discrepancy, or include the final report, to our daytime fax number [phone].If faxing, please indicate the severity of discrepancy using one of the following categories: [ ] 1 - Agree/Informational [ ] 2 - Unlikely to Affect Management [ ] 3 - Possible Eventual Change of Management [ ] 4 - Probable Immediate Change of Management For all other patient related information, please fax us at [phone]. [id number] Code Status & VTE Plan Code Status Full code VTE Prophylaxis Plan VTE Prophylaxis will be ordered: Yes PG Care Time/CCT Total # of Minutes Spent Total Time Spent with Patient: Total time spent is greater than 50% in coordination of care (as documented) at patient's floor/unit and/or counseling patient: Coding Level of Care Code 01159 Initial Inpt Care Lvl 3 Diagnoses Abdominal pain R10.9 Transaminitis R74.01 Type 2 diabetes mellitus E11.9 Pneumonia due to COVID-19 virus U07.1; J12.89 Reactive airway disease J45.909 Hypertension I10 Dyslipidemia E78.5
[2020-04-30] MEDS: dexAMETHasone 6 MG in SYRINGE 0 ML IV SCH (05:28)
[2020-04-30] MEDS: NSS + 20MEQ KCL 20 MEQ/1,000 ML BAG IV SCH ×2 (05:28→19:51)
[2020-04-30] MEDS ORDERED: CARBOHYDRATES FOR HYPOGLYCEMIA PO PRN (05:57)
[2020-04-30] MEDS ORDERED: GLUCAGON FOR INJ 1 MG VIAL SQ PRN (05:57)
[2020-04-30] MEDS ORDERED: GLUCOSE 40% GEL 15 GM TUBE PO PRN (05:57)
[2020-04-30] MEDS ORDERED: DEXTROSE 50% 50 ML SYRINGE IV PRN (05:57)
[2020-04-30] MEDS ORDERED: GLUCOSE 10 TABS/TUBE PO PRN (05:57)
[2020-04-30] MEDS ORDERED: ONDANSETRON INJ 2 MG/ML 2 ML VIAL IV PRN (06:20)
[2020-04-30] MEDS ORDERED: Nursing to Pharmacy Communication SCH (07:15)
--- NOTE | 2020-04-30 07:22 | XRay Report ---
XR chest 1V portable HISTORY: Cough. covid COMPARISON: Chest 04/10/2018. FINDINGS: No pneumothorax or no pleural effusions. The heart remains mildly enlarged. The upper lung zones are clear. Faint hazy densities within the lung bases may represent a developing pneumonia. IMPRESSION: Faint hazy densities within the lung bases may represent a developing pneumonia. ACT 112: Negative or not required by law. Electronically signed by: Walter Gonzales M.D. 04/30/2020 7:21 AM
[2020-04-30] MEDS ORDERED: INSULIN ASPART 100 UNITS/ML 3 ML PEN SC SCH (07:30)
--- NOTE | 2020-04-30 07:33 | CT Scan Report ---
ABDOMEN AND PELVIS CT WITH IV CONTRAST CT DOSE: 1478.48 mGy.cm HISTORY: diffuse abdominal pain TECHNIQUE: Multiaxial CT images of the abdomen and pelvis were performed following the use of intrave nous contrast. A dose lowering technique was utilized adhering to the principles of ALARA. COMPARISON STUDY: Abdomen and pelvis CT 04/10/2018. FINDINGS: Faint small patchy groundglass airspace opacities within the periphery of the lung bases. T his favors a mild viral pneumonia. No pneumoperitoneum. No pneumatosis. There is a left total hip art hroplasty. Slight biliary prominence is likely due to the patient's postcholecystectomy state. This r emains unchanged. No hepatic or splenic masses. The adrenal glands, pancreas, and kidneys are within normal limits. No hydronephrosis. Normal bladder. The main portal vein is patent. Normal caliber abdo norma aorta. No retroperitoneal lymphadenopathy. No bladder wall thickening. No pelvic free fluid. Co lonic diverticulosis. No evidence for acute diverticulitis. There are suture material within the mid sigmoid colon. No bowel wall thickening or obstruction. IMPRESSION: 1. Faint small patchy groundglass airspace opacities within the periphery of the lung bases. This fav ors a mild viral pneumonia. 2. No bowel wall thickening or obstruction. 3. No hydronephrosis. 4. Colonic diverticulosis. No evidence for acute diverticulitis. ACT 112: Negative or not required by law. Electronically signed by: Walter Gonzales M.D. 04/30/2020 7:32 AM
[2020-04-30] MEDS: CEROVITE ADV FORMULA TAB PO SCH (08:46)
[2020-04-30] MEDS: amLODIPine BESYLATE 5 MG TAB PO SCH (08:46)
[2020-04-30] MEDS: INSULIN ASPART 100 UNITS/ML 3 ML PEN SC SCH ×3 (08:47→18:29)
[2020-04-30 09:28] LABS: Hepatitis B Surface Antigen Neg (Neg)
[2020-04-30 09:57] LABS: Hepatitis C IgG 13Yrs+Old_Rflx Neg (Neg)
[2020-04-30] MEDS: FAMOTIDINE 20 MG in SYRINGE 3 ML IV SCH ×2 (10:17→19:51)
[2020-04-30] MEDS: PANTOprazole 40 MG TAB PO SCH ×2 (10:17→19:52)
--- NOTE | 2020-04-30 10:29 | Gastrointestinal Consultation ---
Date of Consultation April 30, 2020 Assessment & Plan (1) Elevated liver enzymes: This is a 65 y/o male who presented yesterday with diffuse abd pain and elevated LFTs, found to have COVID pneumonia. ER notes mention he had blood in his stool, though HGB is WNL and does not appear that he's had any further GI output since admission. Etiology of abd pain and LFTs unclear, but considerations include biliary stone/sludge/obstruction, vs PUD, vs related to underlying COVID, vs viral hepatitis, AIH. Currently afebrile, HD stable. - MRCP ordered and is pending - If positive for biliary stone/sludge/obstruction, will review timing for EGD/EUS - Keep NPO - IVF - PPI BID - Analgesia PRN - Antiemetics PRN - Await LEONEL, acute hep panel - Further rec's to follow MRCP - Would suggest pt have outpt f/u colonoscopy in perhaps 6-8 weeks in f/u of his reported blood in his stool. - Will defer mgmt of his COVID pneumonia to his primary team Thank you for allowing us to participate in the care of this patient. Please call with any acute changes, questions or concerns. Please see addendum below with additional recommendation from my supervising physician. (2) Intractable abdominal pain: (3) COVID-19: Supervising Physician Co-Signing Physician Notes I saw and evaluated the patient in the Covid smith. The patient is very hard of hearing and notes that he did have discomfort yesterday. He was recently found to have Covid infection with elevation of his liver associated enzymes. His prior surgical history is notable for cholecystectomy which was performed about approximately 7 years ago. Physical examination No scleral icterus No evidence of respiratory distress Abdomen soft, mild right-sided tenderness no rebound or peritoneal signs Impression: Patient presents with abdominal discomfort elevated liver enzymes and abdominal discomfort. Patient was found to have a recent Covid infection and his initial imaging was negative for evidence of disease within the biliary tree. We have made arrangements for an MRCP to determine if the patient may have evidence of choledocholithiasis. If negative it is possible that the patient has Covid related hepatitis and we would need to observe his clinical course. History of Present Illness Requesting Physician: transamintis, patient report blood stool, COVID-19 Attending Physician: Kevon Wilder MD History of Present Illness This is a 65 y/o male pt with PMHx CAD, T2DM, HTN, Asthma, previous colon resection/appendectomy/cholecystectomy 2012 presented to the ER yesterday for diffuse abdominal pain, associated with (as per ER notes) a bloody stool and nausea. Per ER notes, rectal exam without any stool though no over blood nor hemorrhoids noted. Labs notable for + COVID, transaminitis with AST 161, 307, normal tbili (LFTs were previously WNL), INR 1.1,HGB 15.9, WBC 4. CXR with changes c/w COVID, and CTAP with slight biliary duct dilation, changes in the lungs c/w COVID, but no acute GI findings. He was noted to be not hypoxic on room air, and was started on IV dexamethasone, Ventolin inhaler, analgesia and IVF. LEONEL, acute hep panel pending. This AM still having some abd tenderness. Previous EGD 2008 = erosive duodenitis He underwent surgical repair of an incarcerated umbilical hernia March 2014. 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 Last colonoscopy September 2018 = diverticulosis, intact anastamosis. No polyps. Repeat September 2023 Allergies Allergy/AdvReac Type Severity Reaction Status Date / Time ketorolac Allergy Intermediate FACIAL Verified 04/30/20 02:08 SWELLING,RASH Penicillins Allergy Mild RASH Verified 04/30/20 02:08 Cipro Allergy Unknown HIVES Verified 03/20/14 07:25 ciprofloxacin Allergy Unknown HIVES Verified 04/30/20 02:08 levofloxacin [From Levaquin] AdvReac Intermediate nausea, Unverified 04/30/20 02:08 tremor codeine AdvReac Unknown "SICK AND Verified 04/30/20 02:08 LIGHTHEADED" morphine AdvReac Unknown "SICK AND Verified 04/30/20 02:08 LIGHTHEADED" Home Medications Medication Instructions Recorded Confirmed Type aspirin 81 mg tablet,delayed 81 mg PO DAILY 11/29/19 04/30/20 History release amlodipine 10 mg tablet 10 mg PO DAILY #90 tab 02/14/20 04/30/20 Rx losartan 100 1 tab PO DAILY #90 tab 02/14/20 04/30/20 Rx mg-hydrochlorothiazide 25 mg tablet atorvastatin 10 mg tablet 10 mg PO DAILY #90 tab 02/15/20 04/30/20 Rx metformin 500 mg tablet,extended 500 mg PO QPM #90 tab 04/10/20 04/30/20 Rx release 24 hr geriatric guwpoitz-wsur-lcho 1 tab PO DAILY 04/30/20 04/30/20 History [[facility]] Patient History Medical History (Updated 04/30/20 @ 05:27 by Luis Au MD) Benign enlargement of prostate Coronary artery calcification Diverticulosis of colon Dyslipidemia Hx of GI malignancy NEC Hypertension Multiple pulmonary nodules benign, Last CT 2017 Obesity, Class II, BMI 35-39.9 Osteoarthritis Reactive airway disease Small bowel obstruction Surgical History (Updated 09/11/19 @ 14:45 by Giselle Martínez) H/O colonoscopy H/O umbilical hernia repair History of appendectomy History of colon resection (~2011) History of total hip replacement left Hx of cholecystectomy Family History (Updated 09/11/19 @ 14:47 by Giselle Martínez) Father Diabetes Unknown Cardiac disorder Social History (Updated 11/29/19 @ 14:53 by Giselle Martínez) Smoking Status: Never smoker Second Hand Exposure: No; Hx Alcohol Use: No Hx Substance Use: No Preferred Language: Prydeinig Communication Ability: Effective Visual Impairment: Limited Hearing Ability: Hard of Hearing Physician Neonatology Required: No Beliefs That Will Affect Care: None Current Living Situation: Alone Feels Safe at Home: Yes Assistive Devices: Glasses, Hearing Aid - Left and Hearing Aid - Right Review of Systems Review of Systems: As per Dr. Thompson Physical Exam Physical Exam: As per Dr. Thompson Results & Data ([facility]) Vital Signs (Past 12 Hours) Vital Signs Temp Pulse Pulse Resp BP BP Pulse Ox 04/30/20 07:18 36.5 C 65 16 142/78 H 94 04/30/20 06:00 36.5 C 96 H 14 154/91 H 95 04/30/20 05:30 155/100 H 04/30/20 05:29 82 15 149/96 H 04/30/20 05:01 88 16 04/30/20 05:00 77 12 138/95 04/30/20 04:30 78 20 04/30/20 04:01 68 14 95 04/30/20 04:00 69 11 L 143/93 H 93 04/30/20 03:40 73 16 97 04/30/20 03:39 81 16 147/80 H 97 04/30/20 03:30 79 16 94 04/30/20 03:00 61 16 96 04/30/20 02:02 77 19 115/83 95 04/30/20 01:59 75 16 138/87 97 04/30/20 01:27 75 24 171/93 H 98 04/30/20 01:04 36.8 C 66 16 168/88 H 99 Laboratory Results 04/30/20 04/30/20 04/30/20 Range/Units 08:41 02:33 02:33 WBC (4.8-10.8) K/uL RBC (4.7-6.1) M/uL Hgb (14.0-18.0) g/dL POC Hgb (14.0-18.0) g/dl Hct (42-52) % POC Hct (42-52) % MCV (80-100) fL MCH (25-34) pg MCHC (32-36) g/dL RDW Std Deviation (36.4-46.3) fL RDW Coeff of Shanice (11.5-14.5) % Plt Count (130-400) K/uL MPV (7.4-10.4) fL Immature Gran % (Auto) % Neut % (Auto) % Lymph % (Auto) % Benton % (Auto) % Eos % (Auto) % Baso % (Auto) % Neut # (Auto) (1.4-6.5) K/uL Lymph # (Auto) (1.2-3.4) K/uL Benton # (Auto) (0.11-0.59) K/uL Eos # (Auto) (0-0.5) K/uL Baso # (Auto) (0-0.2) K/uL Immature Gran # (Auto) (0.00-0.02) K/uL ESR (0-14) mm/hr PT (9.0-12.0) Seconds INR (0.9-1.1) APTT (21.0-31.0) Seconds PTT Ratio POC Sodium (135-144) mmol/L Sodium (136-145) mmol/L POC Potassium (3.3-5.0) mmol/L Potassium (3.5-5.1) mmol/L POC Chloride (101-112) mmol/L Chloride (98-107) mmol/L Carbon Dioxide (21-32) mmol/L POC Total CO2 (24-31) mmol/L Anion Gap (3-11) POC Anion Gap (16-25) mmol/L POC BUN (7-18) mg/dl BUN (7-18) mg/dl Creatinine (0.6-1.4) mg/dl POC Creatinine (0.6-1.3) mg/dl Est Cr Clr Drug Dosing ml/min Est GFR ( Amer) Est GFR (Non-Af Amer) BUN/Creatinine Ratio (10-20) Glucose (70-99) mg/dl POC Glucose 172 H (70-99) mg/dl POC Glucose (other) (70-99) mg/dl Calcium (8.5-10.1) mg/dl POC Ioniz Calcium Carlos (1.12-1.32) mmol/l Total Bilirubin (0.2-1) mg/dl Direct Bilirubin (0-0.2) mg/dl AST (15-37) U/L ALT (12-78) U/L Alkaline Phosphatase (45-117) U/L Total Creatine Kinase (39-308) U/L Total Protein (6.4-8.2) gm/dl Albumin (3.4-5.0) gm/dl Lipase (73-393) U/L Urine Color Urine Appearance (Clear) Urine pH (4.5-7.5) Ur Specific K[place] (1.000-1.030) Urine Protein (Negative) Urine Glucose (UA) (Negative) Urine Ketones (Negative) Urine Blood (Negative) Urine Nitrite (Negative) Urine Bilirubin (Negative) Urine Urobilinogen (Negative) Ur Leukocyte Esterase (Negative) Urine WBC (Auto) (0-5) /hpf Urine RBC (Auto) (0-4) /hpf U Hyaline Cast (Auto) (0-5) /lpf U Epithel Cells (Auto) (0-5) /lpf Urine Bacteria (Auto) (Negative) LEONEL Screen [facility] A IgM Ab Hep Bs Antigen (Neg) Hep B Core IgM Ab Hepatitis C Antibody (Neg) SARS-CoV-2, RNA, NAAT POSITIVE A* (NEGATIVE) 04/30/20 04/30/20 04/30/20 Range/Units 02:33 01:29 01:19 WBC (4.8-10.8) K/uL RBC (4.7-6.1) M/uL Hgb (14.0-18.0) g/dL POC Hgb 16.0 (14.0-18.0) g/dl Hct (42-52) % POC Hct 47 (42-52) % MCV (80-100) fL MCH (25-34) pg MCHC (32-36) g/dL RDW Std Deviation (36.4-46.3) fL RDW Coeff of Shanice (11.5-14.5) % Plt Count (130-400) K/uL MPV (7.4-10.4) fL Immature Gran % (Auto) % Neut % (Auto) % Lymph % (Auto) % Benton % (Auto) % Eos % (Auto) % Baso % (Auto) % Neut # (Auto) (1.4-6.5) K/uL Lymph # (Auto) (1.2-3.4) K/uL Benton # (Auto) (0.11-0.59) K/uL Eos # (Auto) (0-0.5) K/uL Baso # (Auto) (0-0.2) K/uL Immature Gran # (Auto) (0.00-0.02) K/uL ESR (0-14) mm/hr PT (9.0-12.0) Seconds INR (0.9-1.1) APTT (21.0-31.0) Seconds PTT Ratio POC Sodium 141 (135-144) mmol/L Sodium (136-145) mmol/L POC Potassium 3.3 (3.3-5.0) mmol/L Potassium (3.5-5.1) mmol/L POC Chloride 105 (101-112) mmol/L Chloride (98-107) mmol/L Carbon Dioxide (21-32) mmol/L POC Total CO2 27 (24-31) mmol/L Anion Gap (3-11) POC Anion Gap 13.0 L (16-25) mmol/L POC BUN 19 H (7-18) mg/dl BUN (7-18) mg/dl Creatinine (0.6-1.4) mg/dl POC Creatinine 0.9 (0.6-1.3) mg/dl Est Cr Clr Drug Dosing ml/min Est GFR ( Amer) Est GFR (Non-Af Amer) BUN/Creatinine Ratio (10-20) Glucose (70-99) mg/dl POC Glucose (70-99) mg/dl POC Glucose (other) 112 H (70-99) mg/dl Calcium (8.5-10.1) mg/dl POC Ioniz Calcium Carlos 1.13 (1.12-1.32) mmol/l Total Bilirubin (0.2-1) mg/dl Direct Bilirubin (0-0.2) mg/dl AST (15-37) U/L ALT (12-78) U/L Alkaline Phosphatase (45-117) U/L Total Creatine Kinase (39-308) U/L Total Protein (6.4-8.2) gm/dl Albumin (3.4-5.0) gm/dl Lipase (73-393) U/L Urine Color Yellow Urine Appearance Clear (Clear) Urine pH 5.0 (4.5-7.5) Ur Specific K[place]miller > 1.045 H (1.000-1.030) Urine Protein 1+ H (Negative) Urine Glucose (UA) Negative (Negative) Urine Ketones Trace H (Negative) Urine Blood Negative (Negative) Urine Nitrite Negative (Negative) Urine Bilirubin Negative (Negative) Urine Urobilinogen Negative (Negative) Ur Leukocyte Esterase Negative (Negative) Urine WBC (Auto) 0 (0-5) /hpf Urine RBC (Auto) 0-4 (0-4) /hpf U Hyaline Cast (Auto) 0 (0-5) /lpf U Epithel Cells (Auto) 0-5 (0-5) /lpf Urine Bacteria (Auto) Negative (Negative) LEONEL Screen COVID-19 Eval Order Hepatitis A IgM Ab Pending Hep Bs Antigen (Neg) Hep B Core IgM Ab Pending Hepatitis C Antibody (Neg) SARS-CoV-2, RNA, NAAT (NEGATIVE) 04/30/20 04/30/20 04/30/20 Range/Units 01:19 01:19 01:19 WBC (4.8-10.8) K/uL RBC (4.7-6.1) M/uL Hgb (14.0-18.0) g/dL POC Hgb (14.0-18.0) g/dl Hct (42-52) % POC Hct (42-52) % MCV (80-100) fL MCH (25-34) pg MCHC (32-36) g/dL RDW Std Deviation (36.4-46.3) fL RDW Coeff of Shanice (11.5-14.5) % Plt Count (130-400) K/uL MPV (7.4-10.4) fL Immature Gran % (Auto) % Neut % (Auto) % Lymph % (Auto) % Benton % (Auto) % Eos % (Auto) % Baso % (Auto) % Neut # (Auto) (1.4-6.5) K/uL Lymph # (Auto) (1.2-3.4) K/uL Benton # (Auto) (0.11-0.59) K/uL Eos # (Auto) (0-0.5) K/uL Baso # (Auto) (0-0.2) K/uL Immature Gran # (Auto) (0.00-0.02) K/uL ESR (0-14) mm/hr PT (9.0-12.0) Seconds INR (0.9-1.1) APTT 32.6 H (21.0-31.0) Seconds PTT Ratio 1.2 POC Sodium (135-144) mmol/L Sodium (136-145) mmol/L POC Potassium (3.3-5.0) mmol/L Potassium (3.5-5.1) mmol/L POC Chloride (101-112) mmol/L Chloride (98-107) mmol/L Carbon Dioxide (21-32) mmol/L POC Total CO2 (24-31) mmol/L Anion Gap (3-11) POC Anion Gap (16-25) mmol/L POC BUN (7-18) mg/dl BUN (7-18) mg/dl Creatinine (0.6-1.4) mg/dl POC Creatinine (0.6-1.3) mg/dl Est Cr Clr Drug Dosing ml/min Est GFR ( Amer) Est GFR (Non-Af Amer) BUN/Creatinine Ratio (10-20) Glucose (70-99) mg/dl POC Glucose (70-99) mg/dl POC Glucose (other) (70-99) mg/dl Calcium (8.5-10.1) mg/dl POC Ioniz Calcium Carlos (1.12-1.32) mmol/l Total Bilirubin (0.2-1) mg/dl Direct Bilirubin (0-0.2) mg/dl AST (15-37) U/L ALT (12-78) U/L Alkaline Phosphatase (45-117) U/L Total Creatine Kinase (39-308) U/L Total Protein (6.4-8.2) gm/dl Albumin (3.4-5.0) gm/dl Lipase (73-393) U/L Urine Color Urine Appearance (Clear) Urine pH (4.5-7.5) Ur Specific [place] (1.000-1.030) Urine Protein (Negative) Urine Glucose (UA) (Negative) Urine Ketones (Negative) Urine Blood (Negative) Urine Nitrite (Negative) Urine Bilirubin (Negative) Urine Urobilinogen (Negative) Ur Leukocyte Esterase (Negative) Urine WBC (Auto) (0-5) /hpf Urine RBC (Auto) (0-4) /hpf U Hyaline Cast (Auto) (0-5) /lpf U Epithel Cells (Auto) (0-5) /lpf Urine Bacteria (Auto) (Negative) LEONEL Screen Pending COVID-19 Eval Order Hepatitis A IgM Ab Hep Bs Antigen Neg (Neg) Hep B Core IgM Ab Hepatitis C Antibody Neg (Neg) SARS-CoV-2, RNA, NAAT (NEGATIVE) 04/30/20 04/30/20 04/30/20 Range/Units 01:19 01:19 01:19 WBC 4.61 L (4.8-10.8) K/uL RBC 5.18 (4.7-6.1) M/uL Hgb 15.9 (14.0-18.0) g/dL POC Hgb (14.0-18.0) g/dl Hct 44.7 (42-52) % POC Hct (42-52) % MCV 86.3 (80-100) fL MCH 30.7 (25-34) pg MCHC 35.6 (32-36) g/dL RDW Std Deviation 44.4 (36.4-46.3) fL RDW Coeff of Shanice 14.1 (11.5-14.5) % Plt Count 218 (130-400) K/uL MPV 10.4 (7.4-10.4) fL Immature Gran % (Auto) 0.2 % Neut % (Auto) 49.4 % Lymph % (Auto) 36.9 % Benton % (Auto) 11.3 % Eos % (Auto) 2.0 % Baso % (Auto) 0.2 % Neut # (Auto) 2.28 (1.4-6.5) K/uL Lymph # (Auto) 1.70 (1.2-3.4) K/uL Benton # (Auto) 0.52 (0.11-0.59) K/uL Eos # (Auto) 0.09 (0-0.5) K/uL Baso # (Auto) 0.01 (0-0.2) K/uL Immature Gran # (Auto) 0.01 (0.00-0.02) K/uL ESR (0-14) mm/hr PT 11.6 (9.0-12.0) Seconds INR 1.1 (0.9-1.1) APTT (21.0-31.0) Seconds PTT Ratio POC Sodium (135-144) mmol/L Sodium 142 (136-145) mmol/L POC Potassium (3.3-5.0) mmol/L Potassium 3.6 (3.5-5.1) mmol/L POC Chloride (101-112) mmol/L Chloride 108 H (98-107) mmol/L Carbon Dioxide 28 (21-32) mmol/L POC Total CO2 (24-31) mmol/L Anion Gap 6.0 (3-11) POC Anion Gap (16-25) mmol/L POC BUN (7-18) mg/dl BUN 18 (7-18) mg/dl Creatinine 0.98 (0.6-1.4) mg/dl POC Creatinine (0.6-1.3) mg/dl Est Cr Clr Drug Dosing 89.4 ml/min Est GFR ( Amer) 92.1 Est GFR (Non-Af Amer) 79.5 BUN/Creatinine Ratio 18.8 (10-20) Glucose 113 H (70-99) mg/dl POC Glucose (70-99) mg/dl POC Glucose (other) (70-99) mg/dl Calcium 9.3 (8.5-10.1) mg/dl POC Ioniz Calcium Carlos (1.12-1.32) mmol/l Total Bilirubin 0.6 (0.2-1) mg/dl Direct Bilirubin 0.2 (0-0.2) mg/dl AST 161 H (15-37) U/L ALT 307 H (12-78) U/L Alkaline Phosphatase 95 (45-117) U/L Total Creatine Kinase 61 (39-308) U/L Total Protein 7.3 (6.4-8.2) gm/dl Albumin 3.9 (3.4-5.0) gm/dl Lipase 88 (73-393) U/L Urine Color Urine Appearance (Clear) Urine pH (4.5-7.5) Ur Specific [place] (1.000-1.030) Urine Protein (Negative) Urine Glucose (UA) (Negative) Urine Ketones (Negative) Urine Blood (Negative) Urine Nitrite (Negative) Urine Bilirubin (Negative) Urine Urobilinogen (Negative) Ur Leukocyte Esterase (Negative) Urine WBC (Auto) (0-5) /hpf Urine RBC (Auto) (0-4) /hpf U Hyaline Cast (Auto) (0-5) /lpf U Epithel Cells (Auto) (0-5) /lpf Urine Bacteria (Auto) (Negative) LEONEL Screen COVID-19 Eval Order Hepatitis A IgM Ab Hep Bs Antigen (Neg) Hep B Core IgM Ab Hepatitis C Antibody (Neg) SARS-CoV-2, RNA, NAAT (NEGATIVE) 04/30/20 Range/Units 00:19 WBC (4.8-10.8) K/uL RBC (4.7-6.1) M/uL Hgb (14.0-18.0) g/dL POC Hgb (14.0-18.0) g/dl Hct (42-52) % POC Hct (42-52) % MCV (80-100) fL MCH (25-34) pg MCHC (32-36) g/dL RDW Std Deviation (36.4-46.3) fL RDW Coeff of Shanice (11.5-14.5) % Plt Count (130-400) K/uL MPV (7.4-10.4) fL Immature Gran % (Auto) % Neut % (Auto) % Lymph % (Auto) % Benton % (Auto) % Eos % (Auto) % Baso % (Auto) % Neut # (Auto) (1.4-6.5) K/uL Lymph # (Auto) (1.2-3.4) K/uL Benton # (Auto) (0.11-0.59) K/uL Eos # (Auto) (0-0.5) K/uL Baso # (Auto) (0-0.2) K/uL Immature Gran # (Auto) (0.00-0.02) K/uL ESR 16 H (0-14) mm/hr PT (9.0-12.0) Seconds INR (0.9-1.1) APTT (21.0-31.0) Seconds PTT Ratio POC Sodium (135-144) mmol/L Sodium (136-145) mmol/L POC Potassium (3.3-5.0) mmol/L Potassium (3.5-5.1) mmol/L POC Chloride (101-112) mmol/L Chloride (98-107) mmol/L Carbon Dioxide (21-32) mmol/L POC Total CO2 (24-31) mmol/L Anion Gap (3-11) POC Anion Gap (16-25) mmol/L POC BUN (7-18) mg/dl BUN (7-18) mg/dl Creatinine (0.6-1.4) mg/dl POC Creatinine (0.6-1.3) mg/dl Est Cr Clr Drug Dosing ml/min Est GFR ( Amer) Est GFR (Non-Af Amer) BUN/Creatinine Ratio (10-20) Glucose (70-99) mg/dl POC Glucose (70-99) mg/dl POC Glucose (other) (70-99) mg/dl Calcium (8.5-10.1) mg/dl POC Ioniz Calcium Carlos (1.12-1.32) mmol/l Total Bilirubin (0.2-1) mg/dl Direct Bilirubin (0-0.2) mg/dl AST (15-37) U/L ALT (12-78) U/L Alkaline Phosphatase (45-117) U/L Total Creatine Kinase (39-308) U/L Total Protein (6.4-8.2) gm/dl Albumin (3.4-5.0) gm/dl Lipase (73-393) U/L Urine Color Urine Appearance (Clear) Urine pH (4.5-7.5) Ur Specific [place] (1.000-1.030) Urine Protein (Negative) Urine Glucose (UA) (Negative) Urine Ketones (Negative) Urine Blood (Negative) Urine Nitrite (Negative) Urine Bilirubin (Negative) Urine Urobilinogen (Negative) Ur Leukocyte Esterase (Negative) Urine WBC (Auto) (0-5) /hpf Urine RBC (Auto) (0-4) /hpf U Hyaline Cast (Auto) (0-5) /lpf U Epithel Cells (Auto) (0-5) /lpf Urine Bacteria (Auto) (Negative) LEONEL Screen COVID-19 Eval Order Hepatitis A IgM Ab Hep Bs Antigen (Neg) Hep B Core IgM Ab Hepatitis C Antibody (Neg) SARS-CoV-2, RNA, NAAT (NEGATIVE) Diagnostic Findings CXR Faint hazy densities within the lung bases may represent a developing pneumonia. CTAP: FINDINGS: Faint small patchy groundglass airspace opacities within the periphery of the lung bases. This favors a mild viral pneumonia. No pneumoperitoneum. No pneumatosis. There is a left total hip arthroplasty. Slight biliary prominence is likely due to the patient's postcholecystectomy state. This remains unchanged. No hepatic or splenic masses. The adrenal glands, pancreas, and kidneys are within normal limits. No hydronephrosis. Normal bladder. The main portal vein is patent. Normal caliber abdominal aorta. No retroperitoneal lymphadenopathy. No bladder wall thickening. No pelvic free fluid. Colonic diverticulosis. No evidence for acute diverticulitis. There are suture material within the mid sigmoid colon. No bowel wall thickening or obstruction. IMPRESSION: 1. Faint small patchy groundglass airspace opacities within the periphery of the lung bases. This favors a mild viral pneumonia. 2. No bowel wall thickening or obstruction. 3. No hydronephrosis. 4. Colonic diverticulosis. No evidence for acute diverticulitis.
--- NOTE | 2020-04-30 12:13 | Magnetic Resonance Report ---
MRCP CLINICAL HISTORY: Evaluate for CBD stones. Abdominal pain. TECHNIQUE: Utilizing a 1.5 Ana magnet and dedicated coil, multiplanar, multiecho imaging of the [facility] er abdomen was performed utilizing heavily T2 weighted pulsing sequences without IV contrast. COMPARISON STUDY: CT of the abdomen and pelvis April 30, 2020. Right upper quadrant ultrasound Ju 2012. FINDINGS: There is no biliary ductal dilatation status post cholecystectomy. The common bile duct wil sures 5 mm in caliber. No common bile duct calculi are identified. The course and caliber of the main pancreatic duct is normal. There is no peripancreatic infiltration. No peripancreatic fluid collecti ons are present. Imaged portions of the lower chest demonstrate multifocal airspace opacities within the lower lungs, greater on the left. These are better depicted on chest CT performed earlier today. No hepatic lesions are identified on this unenhanced exam. Unenhanced images of the spleen, adrenal g lands and kidneys are unremarkable. There is no abdominal lymphadenopathy or ascites. The caliber and wall thickness of visualized small and large bowel are normal. No suspicious marrow replacement is i dentified within visualized skeletal structures. Incidental note is made of central increased T2 sign al within visualized portions of the lower thoracic cord. This measures 2.4 mm in AP dimension. IMPRESSION: 1. No common bile duct calculi identified. No biliary ductal dilatation status post cholecystectomy. 2. Multifocal airspace opacities within the lower lungs, better depicted on CT performed earlier toda y. This suggests viral pneumonia. 3. Central increased T2 signal within the lower thoracic cord. Although this may be artifactual, the findings raise the possibility of a syrinx which be correlated with neurologic symptoms. If present, an MRI of the thoracic spine could be obtained. ACT 112: Negative or not required by law. Electronically signed by: Terrance Macias M.D. 04/30/2020 12:12 PM
--- NOTE | 2020-04-30 16:06 | History & Physical Bridge Note ---
Date of Service April 30, 2020 History & Physical Bridge Note I have examined the patient, reviewed the History & Physical and in the interval since the performance of the History & Physical I have noted the following changes of clinical significance: No major issues today. Still with some nausea at present. Will continue with present plan and monitor.
[2020-05-01] MEDS: INSULIN ASPART 100 UNITS/ML 3 ML PEN SC SCH ×5 (00:19→23:48)
[2020-05-01] MEDS: NSS + 20MEQ KCL 20 MEQ/1,000 ML BAG IV SCH ×2 (07:41→23:48)
[2020-05-01 08:21] LABS: Basophils # (auto) 0.01 K/uL (0-0.2); Basophils % (auto) 0.2 %; Eosinophils # (auto) 0.01 K/uL (0-0.5); Eosinophils % (auto) 0.2 %; Hematocrit (blood only) 44.6 % (42-52); Hemoglobin 15.3 g/dL (14.0-18.0); Immature Granulocytes # (auto) 0.01 K/uL (0.00-0.02); Immature Granulocytes % (auto) 0.2 %; Lymphocytes # (auto) 1.04 K/uL (1.2-3.4); Lymphocytes % (auto) 21.7 %; Mean Corpuscular Hemoglobin 30.1 pg (25-34); Mean Corpuscular Hgb Conc 34.3 g/dL (32-36); Mean Corpuscular Volume 87.8 fL (80-100); Mean Platelet Volume 10.8 fL (7.4-10.4); Monocytes # (auto) 0.38 K/uL (0.11-0.59); Monocytes % (auto) 7.9 %; Neutrophils # (auto) 3.35 K/uL (1.4-6.5); Neutrophils % (auto) 69.8 %; Platelet Count 208 K/uL (130-400); RDW Coefficient of Variation 14.3 % (11.5-14.5); RDW Standard Deviation 46.4 fL (36.4-46.3); Red Blood Count 5.08 M/uL (4.7-6.1)
[2020-05-01] MEDS: amLODIPine BESYLATE 5 MG TAB PO SCH (08:33)
[2020-05-01] MEDS: PANTOprazole 40 MG TAB PO SCH (08:33)
[2020-05-01] MEDS: CEROVITE ADV FORMULA TAB PO SCH (08:33)
[2020-05-01] MEDS: FAMOTIDINE 20 MG in SYRINGE 3 ML IV SCH (08:34)
[2020-05-01] MEDS: dexAMETHasone 6 MG in SYRINGE 0 ML IV SCH (08:34)
[2020-05-01 08:48] LABS: INR 1.1 (0.9-1.1); Partial Thromboplastin Ratio 1.1; Partial Thromboplastin Time 30.9 Seconds (21.0-31.0); Prothrombin Time 11.5 Seconds (9.0-12.0)
[2020-05-01 08:55] LABS: Albumin Level 3.3 gm/dl (3.4-5.0); BUN Creatinine Ratio 17.1 (10-20); Creatinine Clr Calc Pharmacy 105.7 ml/min; Est GFR (African American) 105.5; Estimated Average Glucose 151 mg/dl; Hemoglobin A1C 6.9 % (4.5-5.6); Magnesium 1.9 mg/dl (1.8-2.4); Potassium 3.8 mmol/L (3.5-5.1)
[2020-05-01 08:58] LABS: Albumin Globulin Ratio 1.1 (0.9-2); Bilirubin,Total 0.9 mg/dl (0.2-1); Globulin 3.1 gm/dl (2.5-4.0); Total Protein 6.4 gm/dl (6.4-8.2)
--- NOTE | 2020-05-01 10:05 | Gastroenterology Progress Note ---
Date of Service May 01, 2020 Assessment & Plan (1) Elevated liver enzymes: This is a 65 y/o male admitted with abd pain, found to have COVID pneumonia and elevated LFTs. MRCP without findings of biliary stone or dilation. Today LFTs trending down, AST 161->100, ALT 307->220, with normal tbili, WBC, HGB. It's possible LFTs are acutely elevated from his COVID pneumonia (COVID related hepatitis). - Would await rest of LEONEL, acute hep panel - Would trend LFTs; would expect if related to his viral illness, that as he improves from that, he will have concurrent improvement and resolution of elevated LFTs - Would avoid hepatotoxins, ETOH - As pt had some bloody stool upon admission, would recommend follow-up outpt colonoscopy in approx 6 weeks - Will defer mgmt of his COVID pneumonia to his primary team Please call with any acute changes, questions or concerns. Please see addendum below with additional recommendation from my supervising physician. (2) Abdominal pain: (3) Pneumonia due to COVID-19 virus: Admission and Anticipated Discharge Date Admission Date: April 30, 2020 Supervising Physician Co-Signing Physician Notes I saw and evaluated the patient today. The patient's CT and MRI showed no evidence of choledocholithiasis. I wonder if the patient's liver enzyme elevation is related to Covid induced hepatitis. Perhaps the patient would be best served with therapy for Covid and perhaps an infectious disease consultation. As the patient's liver enzymes are improving we would recommend stopping the statin medication until they have normalized. Recommendations Continue to monitor liver enzymes Consider ID consultation Would suggest stopping the statin medication Please reconsult should the patient's liver enzymes continue to improve Subjective Pt admitted with abd pain, found to have COVID pneumonia and elevated LFTs. MRCP done yesterday noted no evidence of choledocholithiasis, biliary dilation or hepatic lesions, though it was noted that he had pulmonary findings c/w viral pneumonia. Overnight LFTs are trending down, tbili is WNL, and CBC, BMP remain generally unremarkable. Hep C ab is neg; the rest of acute hep panel and LEONEL are pending. Vitals are stable and he's afebrile. Results & Data ([facility]) Vital Signs (Past 12 Hours) Vital Signs Temp Pulse Resp BP Pulse Ox 05/01/20 07:15 36.5 C 58 L 16 122/82 98 04/30/20 23:28 36.4 C L 63 16 159/86 H 96 Laboratory Results 05/01/20 05/01/20 05/01/20 Range/Units 06:26 06:26 06:26 WBC (4.8-10.8) K/uL RBC (4.7-6.1) M/uL Hgb (14.0-18.0) g/dL Hct (42-52) % MCV (80-100) fL MCH (25-34) pg MCHC (32-36) g/dL RDW Std Deviation (36.4-46.3) fL RDW Coeff of Shanice (11.5-14.5) % Plt Count (130-400) K/uL MPV (7.4-10.4) fL Immature Gran % (Auto) % Neut % (Auto) % Lymph % (Auto) % [place] % (Auto) % Eos % (Auto) % Baso % (Auto) % Neut # (Auto) (1.4-6.5) K/uL Lymph # (Auto) (1.2-3.4) K/uL Erie # (Auto) (0.11-0.59) K/uL Eos # (Auto) (0-0.5) K/uL Baso # (Auto) (0-0.2) K/uL Immature Gran # (Auto) (0.00-0.02) K/uL PT 11.5 (9.0-12.0) Seconds INR 1.1 (0.9-1.1) APTT 30.9 (21.0-31.0) Seconds PTT Ratio 1.1 Sodium 145 (136-145) mmol/L Potassium 3.8 (3.5-5.1) mmol/L Chloride 111 H (98-107) mmol/L Carbon Dioxide 28 (21-32) mmol/L Anion Gap 6.0 (3-11) BUN 14 (7-18) mg/dl Creatinine 0.83 (0.6-1.4) mg/dl Est Cr Clr Drug Dosing 105.7 ml/min Est GFR ( Amer) 105.5 Est GFR (Non-Af Amer) 91.0 BUN/Creatinine Ratio 17.1 (10-20) Glucose 108 H (70-99) mg/dl POC Glucose (70-99) mg/dl Estimat Average Glucose 151 mg/dl Hemoglobin A1c 6.9 H (4.5-5.6) % Calcium 9.0 (8.5-10.1) mg/dl Magnesium 1.9 (1.8-2.4) mg/dl Total Bilirubin 0.9 (0.2-1) mg/dl AST 100 H (15-37) U/L ALT 220 H (12-78) U/L Alkaline Phosphatase 115 (45-117) U/L Total Protein 6.4 (6.4-8.2) gm/dl Albumin 3.3 L (3.4-5.0) gm/dl Globulin 3.1 (2.5-4.0) gm/dl Albumin/Globulin Ratio 1.1 (0.9-2) 05/01/20 05/01/20 05/01/20 Range/Units 06:26 05:19 00:12 WBC 4.80 (4.8-10.8) K/uL RBC 5.08 (4.7-6.1) M/uL Hgb 15.3 (14.0-18.0) g/dL Hct 44.6 (42-52) % MCV 87.8 (80-100) fL MCH 30.1 (25-34) pg MCHC 34.3 (32-36) g/dL RDW Std Deviation 46.4 H (36.4-46.3) fL RDW Coeff of Shanice 14.3 (11.5-14.5) % Plt Count 208 (130-400) K/uL MPV 10.8 H (7.4-10.4) fL Immature Gran % (Auto) 0.2 % Neut % (Auto) 69.8 % Lymph % (Auto) 21.7 % Erie % (Auto) 7.9 % Eos % (Auto) 0.2 % Baso % (Auto) 0.2 % Neut # (Auto) 3.35 (1.4-6.5) K/uL Lymph # (Auto) 1.04 L (1.2-3.4) K/uL Erie # (Auto) 0.38 (0.11-0.59) K/uL Eos # (Auto) 0.01 (0-0.5) K/uL Baso # (Auto) 0.01 (0-0.2) K/uL Immature Gran # (Auto) 0.01 (0.00-0.02) K/uL PT (9.0-12.0) Seconds INR (0.9-1.1) APTT (21.0-31.0) Seconds PTT Ratio Sodium (136-145) mmol/L Potassium (3.5-5.1) mmol/L Chloride (98-107) mmol/L Carbon Dioxide (21-32) mmol/L Anion Gap (3-11) BUN (7-18) mg/dl Creatinine (0.6-1.4) mg/dl Est Cr Clr Drug Dosing ml/min Est GFR ( Amer) Est GFR (Non-Af Amer) BUN/Creatinine Ratio (10-20) Glucose (70-99) mg/dl POC Glucose 107 H 120 H (70-99) mg/dl Estimat Average Glucose mg/dl Hemoglobin A1c (4.5-5.6) % Calcium (8.5-10.1) mg/dl Magnesium (1.8-2.4) mg/dl Total Bilirubin (0.2-1) mg/dl AST (15-37) U/L ALT (12-78) U/L Alkaline Phosphatase (45-117) U/L Total Protein (6.4-8.2) gm/dl Albumin (3.4-5.0) gm/dl Globulin (2.5-4.0) gm/dl Albumin/Globulin Ratio (0.9-2) 04/30/20 04/30/20 Range/Units 18:16 12:14 WBC (4.8-10.8) K/uL RBC (4.7-6.1) M/uL Hgb (14.0-18.0) g/dL Hct (42-52) % MCV (80-100) fL MCH (25-34) pg MCHC (32-36) g/dL RDW Std Deviation (36.4-46.3) fL RDW Coeff of Shanice (11.5-14.5) % Plt Count (130-400) K/uL MPV (7.4-10.4) fL Immature Gran % (Auto) % Neut % (Auto) % Lymph % (Auto) % [place] % (Auto) % Eos % (Auto) % Baso % (Auto) % Neut # (Auto) (1.4-6.5) K/uL Lymph # (Auto) (1.2-3.4) K/uL [place]rie # (Auto) (0.11-0.59) K/uL Eos # (Auto) (0-0.5) K/uL Baso # (Auto) (0-0.2) K/uL Immature Gran # (Auto) (0.00-0.02) K/uL PT (9.0-12.0) Seconds INR (0.9-1.1) APTT (21.0-31.0) Seconds PTT Ratio Sodium (136-145) mmol/L Potassium (3.5-5.1) mmol/L Chloride (98-107) mmol/L Carbon Dioxide (21-32) mmol/L Anion Gap (3-11) BUN (7-18) mg/dl Creatinine (0.6-1.4) mg/dl Est Cr Clr Drug Dosing ml/min Est GFR ( Amer) Est GFR (Non-Af Amer) BUN/Creatinine Ratio (10-20) Glucose (70-99) mg/dl POC Glucose 126 H 159 H (70-99) mg/dl Estimat Average Glucose mg/dl Hemoglobin A1c (4.5-5.6) % Calcium (8.5-10.1) mg/dl Magnesium (1.8-2.4) mg/dl Total Bilirubin (0.2-1) mg/dl AST (15-37) U/L ALT (12-78) U/L Alkaline Phosphatase (45-117) U/L Total Protein (6.4-8.2) gm/dl Albumin (3.4-5.0) gm/dl Globulin (2.5-4.0) gm/dl Albumin/Globulin Ratio (0.9-2) Diagnostic Findings MRCP CLINICAL HISTORY: Evaluate for CBD stones. Abdominal pain. TECHNIQUE: Utilizing a 1.5 Ana magnet and dedicated coil, multiplanar, multiecho imaging of the upper abdomen was performed utilizing heavily T2 weighted pulsing sequences without IV contrast. COMPARISON STUDY: CT of the abdomen and pelvis April 30, 2020. Right upper quadrant ultrasound November 02, 2012. FINDINGS: There is no biliary ductal dilatation status post cholecystectomy. The common bile duct measures 5 mm in caliber. No common bile duct calculi are identified. The course and caliber of the main pancreatic duct is normal. There is no peripancreatic infiltration. No peripancreatic fluid collections are present. Imaged portions of the lower chest demonstrate multifocal airspace opacities within the lower lungs, greater on the left. These are better depicted on chest CT performed earlier today. No hepatic lesions are identified on this unenhanced exam. Unenhanced images of the spleen, adrenal glands and kidneys are unremarkable. There is no abdominal lymphadenopathy or ascites. The caliber and wall thickness of visualized small and large bowel are normal. No suspicious marrow replacement is identified within visualized skeletal structures. Incidental note is made of central increased T2 signal within visualized portions of the lower thoracic cord. This measures 2.4 mm in AP dimension. IMPRESSION: 1. No common bile duct calculi identified. No biliary ductal dilatation status post cholecystectomy. 2. Multifocal airspace opacities within the lower lungs, better depicted on CT performed earlier today. This suggests viral pneumonia. 3. Central increased T2 signal within the lower thoracic cord. Although this may be artifactual, the findings raise the possibility of a syrinx which be correlated with neurologic symptoms. If present, an MRI of the thoracic spine could be obtained.
[2020-05-01 12:36] LABS: Hepatitis A Antibody IgM NON-REACTIVE (NON-REACTIVE); Hepatitis B Core Antibody IgM NON-REACTIVE (NON-REACTIVE)
[2020-05-01 13:13] LABS: Anti Nuclear Antibody Screen POSITIVE (NEGATIVE)
--- NOTE | 2020-05-01 13:28 | Hospitalist Progress Note ---
Date of Service May 01, 2020 Assessment & Plan (1) Abdominal pain: CT a/p on 04/30 without obvious issue. However, he is acting like an SBO/ileus with no BM and no passing gas. Possibly functional ileus from Covid? All biliary imaging including MRCP on 04/30 was normal. - Continue NPO - Advance as able - Plan for colonoscopy with GI in 4-6 weeks after acute issues resolve. - Continue PPI, but switch to daily - Appreciate GI consult - No further inpatient follow-up given stability/im provement. (2) Transaminitis: See above (3) Type 2 diabetes mellitus: A1c was 6.9% this admission. - Hold Metformin. - Sliding scale insulin - Blood sugars generally 110 to 180 in last 24 hours. (4) Pneumonia due to COVID-19 virus: Pneumonia due to COVID-19 virus without hypoxia. - No indication for dexamethasone, remdesivir, or plasma given pulmonary stability. - Continue isolation precautions. (5) Hypertension: BP is 120/80 today. - Continue amlodipine - Hold aspirin, and losartan/HCTZ (6) Dyslipidemia: - Hold statin for 2-3 weeks per GI (7) DVT prophylaxis: Lovenox 40 mg SQ daily Admission and Anticipated Discharge Date Admission Date: April 30, 2020 Subjective Feeling better today overall. Less pain and nausea. Reports no fevers/chills, chest pain, shortness of breath, or vomiting. Physical Exam Constitutional: WD/WN, vitals as above Eyes: EOM intact bilaterally; no conjunctival abnormality ENMT: external ear and nose normal, oropharynx normal Neck: trachea midline, no thyromegaly normal visual inspection Respiratory: normal respiratory effort, lungs clear to auscultation no respiratory distress Cardiovascular: RRR, no murmur, no edema Gastrointestinal (Abdomen): Inspection/Auscultation: abdomen normal to inspection and normal bowel sounds; abdomen not distended Percussion/Palp ation: abdomen soft; abdomen nontender, no guarding and abdomen not rigid Musculoskeletal: no cyanosis or clubbing, extremities motor strength 5/5 Skin: no rashes, warm and dry Neurologic: moves all extremities and awake Psychiatric: Orientation: alert, oriented to person and cooperative Results & Data Results & Data ([facility]) Vital Signs (Past 12 Hours) Vital Signs Temp Pulse Resp BP Pulse Ox 12/24/20 07:15 36.5 C 58 L 16 122/82 98 PG Care Time/CCT Total # of Minutes Spent Total Time Spent with Patient: Total time spent is greater than 50% in coordination of care (as documented) at patient's floor/unit and/or counseling patient: Coding Level of Care Code 39512 Subseq Hosp Care Lvl 3 Diagnoses Abdominal pain R10.9 Transaminitis R74.01 Type 2 diabetes mellitus E11.9 Pneumonia due to COVID-19 virus U07.1; J12.89 Hypertension I10 Dyslipidemia E78.5 DVT prophylaxis Z29.9
[2020-05-02] MEDS: INSULIN ASPART 100 UNITS/ML 3 ML PEN SC SCH ×4 (05:45→20:46)
[2020-05-02] MEDS: NSS + 20MEQ KCL 20 MEQ/1,000 ML BAG IV SCH (05:45)
[2020-05-02 06:54] LABS: Basophils # (auto) 0.01 K/uL (0-0.2); Basophils % (auto) 0.2 %; Hematocrit (blood only) 46.9 % (42-52); Hemoglobin 15.8 g/dL (14.0-18.0); Immature Granulocytes # (auto) 0.01 K/uL (0.00-0.02); Immature Granulocytes % (auto) 0.2 %; Lymphocytes # (auto) 1.17 K/uL (1.2-3.4); Lymphocytes % (auto) 20.6 %; Mean Corpuscular Hemoglobin 29.5 pg (25-34); Mean Corpuscular Hgb Conc 33.7 g/dL (32-36); Mean Corpuscular Volume 87.7 fL (80-100); Monocytes # (auto) 0.43 K/uL (0.11-0.59); Monocytes % (auto) 7.6 %; Neutrophils # (auto) 4.05 K/uL (1.4-6.5); Neutrophils % (auto) 71.4 %; Platelet Count 229 K/uL (130-400); RDW Coefficient of Variation 14.1 % (11.5-14.5); RDW Standard Deviation 45.7 fL (36.4-46.3); Red Blood Count 5.35 M/uL (4.7-6.1); White Blood Count 5.67 K/uL (4.8-10.8)
[2020-05-02 07:05] LABS: INR 1.1 (0.9-1.1); Partial Thromboplastin Ratio 1.1; Partial Thromboplastin Time 29.3 Seconds (21.0-31.0); Prothrombin Time 11.4 Seconds (9.0-12.0)
[2020-05-02 07:42] LABS: Albumin Level 3.4 gm/dl (3.4-5.0); Calcium 8.6 mg/dl (8.5-10.1); Creatinine Clr Calc Pharmacy 118.6 ml/min; Est GFR (African American) 110.6; Est GFR (Non-African American) 95.4; Magnesium 2.1 mg/dl (1.8-2.4); Potassium 3.7 mmol/L (3.5-5.1)
[2020-05-02 07:43] LABS: Globulin 3.5 gm/dl (2.5-4.0); Total Protein 6.9 gm/dl (6.4-8.2)
[2020-05-02 08:43] LABS: ANA Pattern Nuclear, Homogeneous
[2020-05-02] MEDS: amLODIPine BESYLATE 5 MG TAB PO SCH (11:22)
[2020-05-02] MEDS: CEROVITE ADV FORMULA TAB PO SCH (11:23)
[2020-05-02] MEDS: PANTOprazole 40 MG TAB PO SCH (11:23)
--- NOTE | 2020-05-02 12:32 | Hospitalist Progress Note ---
Date of Service May 02, 2020 Assessment & Plan (1) Abdominal pain: CT a/p on 04/30 without obvious issue. However, he is acting like an SBO/ileus with no BM and no passing gas. Possibly functional ileus from Covid? All biliary imaging including MRCP on 04/30 was normal. - Plan for colonoscopy with GI in 4-6 weeks for hematochezia after acute issues resolve. - Continue PPI - Appreciate GI consult - No further inpatient follow-up given stability/improvement. - KUB on 05/02 without obvious ileus or SBO. No pain, nausea, or emesis. Will advance diet to clears and see how things go. Will add Miralax as well. (2) Transaminitis: Followed by GI for this. No biliary pathology noted. Presumed Covid/viral hepatitis. - Improving - Can get repeat LFTs in 2-3 weeks with PCP to ensure resolution. (3) Type 2 diabetes mellitus: A1c was 6.9% this admission. - Hold metformin. - Sliding scale insulin - Blood sugars generally 110 to 140 in last 24 hours. (4) Pneumonia due to COVID-19 virus: Pneumonia due to COVID-19 virus without hypoxia. - No indication for dexamethasone, remdesivir, or plasma given pulmonary stability. - Continue isolation precautions. (5) Hypertension: BP is 150/85 today. - Continue amlodipine - Hold aspirin and losartan/HCTZ (6) Dyslipidemia: - Hold statin for 2-3 weeks per GI (7) DVT prophylaxis: Lovenox 40 mg SQ daily Admission and Anticipated Discharge Date Admission Date: April 30, 2020 Subjective No major concerns today. No abdominal pain and no nausea; however, he also denies any flatus or BM. Reports no fevers/chills, chest pain, shortness of breath, or vomiting. Physical Exam Constitutional: WD/WN, vitals as above Eyes: EOM intact bilaterally; no conjunctival abnormality ENMT: external ear and nose normal, oropharynx normal Neck: trachea midline, no thyromegaly normal visual inspection Respiratory: normal respiratory effort, lungs clear to auscultation no respiratory distress Cardiovascular: RRR, no murmur, no edema Gastrointestinal (Abdomen): Inspection/Auscultation: abdomen normal to inspection and normal bowel sounds; abdomen not distended Percussion/Palpation: abdomen soft; abdomen nontender, no guarding and abdomen not rigid Musculoskeletal: no cyanosis or clubbing, extremities motor strength 5/5 Skin: no rashes, warm and dry Neurologic: moves all extremities and awake Psychiatric: Orientation: alert, oriented to person and cooperative Results & Data Results & Data ([facility]) Vital Signs (Past 12 Hours) Vital Signs Temp Pulse Resp BP Pulse Ox 05/02/20 07:39 36.5 C 48 L 18 150/84 H 98 05/02/20 02:00 155/83 H PG Care Time/CCT Total # of Minutes Spent Total Time Spent with Patient: Total time spent is greater than 50% in coordination of care (as documented) at patient's floor/unit and/or counseling patient: Coding Level of Care Code 26552 Subseq Hosp Care Lvl 3 Diagnoses Abdominal pain R10.9 Transaminitis R74.01 Type 2 diabetes mellitus E11.9 Pneumonia due to COVID-19 virus U07.1; J12.89 Hypertension I10 Dyslipidemia E78.5 DVT prophylaxis Z29.9
--- NOTE | 2020-05-02 12:36 | XRay Report ---
XR KUB/Abdomen 1 view CLINICAL HISTORY: Abdominal pain and distention COMPARISON STUDY: 10/22/2011 FINDINGS: 3 views are provided for interpretation. There are surgical clips within the right upper qu adrant consistent with a prior cholecystectomy. There are postsurgical changes of a total left hip ar throplasty. There is heterotopic ossification adjacent to the greater trochanter. There is no patholo gic bowel dilatation. Faint densities projected over the left renal shadow likely represent enteric c ontents. IMPRESSION: 1. Nonobstructive bowel gas pattern. No evidence of pathologic bowel dilatation. ACT 112: Negative or not required by law. Electronically signed by: Trevor Tyson M.D. 05/02/2020 12:34 PM
[2020-05-02] MEDS ORDERED: Nursing to Pharmacy Communication SCH (13:15)
[2020-05-02] MEDS: POLYETHYLENE (MIRALAX) 17 GM PACK PO SCH (15:37)
[2020-05-02] MEDS: ENOXAPARIN INJ 40 MG/0.4 ML SYR SQ SCH (15:37)
[2020-05-03 07:34] LABS: Basophils # (auto) 0.01 K/uL (0-0.2); Basophils % (auto) 0.2 %; Eosinophils % (auto) 1.6 %; Hematocrit (blood only) 43.8 % (42-52); Immature Granulocytes # (auto) 0.01 K/uL (0.00-0.02); Immature Granulocytes % (auto) 0.2 %; Lymphocytes # (auto) 2.07 K/uL (1.2-3.4); Lymphocytes % (auto) 32.7 %; Mean Corpuscular Hgb Conc 34.2 g/dL (32-36); Mean Corpuscular Volume 87.6 fL (80-100); Mean Platelet Volume 10.8 fL (7.4-10.4); Monocytes # (auto) 0.49 K/uL (0.11-0.59); Monocytes % (auto) 7.7 %; Neutrophils # (auto) 3.65 K/uL (1.4-6.5); Neutrophils % (auto) 57.6 %; Platelet Count 192 K/uL (130-400); RDW Coefficient of Variation 14.3 % (11.5-14.5); RDW Standard Deviation 45.7 fL (36.4-46.3); White Blood Count 6.33 K/uL (4.8-10.8)
[2020-05-03 07:44] LABS: INR 1.1 (0.9-1.1); Partial Thromboplastin Time 26.8 Seconds (21.0-31.0); Prothrombin Time 11.6 Seconds (9.0-12.0)
[2020-05-03 07:57] LABS: BUN Creatinine Ratio 21.3 (10-20); Calcium 8.5 mg/dl (8.5-10.1); Magnesium 1.9 mg/dl (1.8-2.4); Potassium 3.6 mmol/L (3.5-5.1)
[2020-05-03 08:00] LABS: Bilirubin,Total 0.9 mg/dl (0.2-1); Globulin 2.9 gm/dl (2.5-4.0); Total Protein 5.9 gm/dl (6.4-8.2)
[2020-05-03] MEDS: INSULIN ASPART 100 UNITS/ML 3 ML PEN SC SCH ×4 (08:47→22:29)
[2020-05-03] MEDS: CEROVITE ADV FORMULA TAB PO SCH (08:48)
[2020-05-03] MEDS: amLODIPine BESYLATE 5 MG TAB PO SCH (08:49)
[2020-05-03] MEDS: PANTOprazole 40 MG TAB PO SCH (08:49)
[2020-05-03] MEDS: ENOXAPARIN INJ 40 MG/0.4 ML SYR SQ SCH (08:50)
[2020-05-03] MEDS: POLYETHYLENE (MIRALAX) 17 GM PACK PO SCH (08:51)
--- NOTE | 2020-05-03 17:12 | Hospitalist Progress Note ---
Date of Service May 03, 2020 Assessment & Plan (1) Abdominal pain: CT a/p on 04/30 without obvious issue. However, he actied like an SBO/ileus with no BM and no passing gas. Possibly functional ileus from Covid? All biliary imaging including MRCP on 04/30 was normal. - Plan for colonoscopy with GI in 4-6 weeks for hematochezia after acute issues resolve. - Continue PPI - Appreciate GI consult - No further inpatient follow-up given stability/improvement. - KUB on 05/02 without obvious ileus or SBO. No pain, nausea, or emesis. Moved to normal diet on 05/03. Likely discharge tomorrow if he continues to feel well. (2) Transaminitis: Followed by GI for this. No biliary pathology noted. Presumed Covid/viral hepatitis. - Improving - Can get repeat LFTs in 2-3 weeks with PCP to ensure resolution. (3) Type 2 diabetes mellitus: A1c was 6.9% this admission. - Hold metformin. - Sliding scale insulin - Blood sugars generally 90 to 130 in last 24 hours. (4) Pneumonia due to COVID-19 virus: Pneumonia due to COVID-19 virus without hypoxia. - No indication for dexamethasone, remdesivir, or plasma given pulmonary stability. - Continue isolation precautions. (5) Hypertension: BP is 140/80 today. - Continue amlodipine - Hold aspirin and losartan/HCTZ (6) Dyslipidemia: - Hold statin for 2-3 weeks per GI (7) DVT prophylaxis: Lovenox 40 mg SQ daily Admission and Anticipated Discharge Date Admission Date: April 30, 2020 Subjective Doing well today. Had 4 BMs this morning. Reports no fevers/chills, chest pain, shortness of breath, abdominal pain, nausea, or vomiting. Physical Exam Constitutional: WD/WN, vitals as above Eyes: EOM intact bilaterally; no conjunctival abnormality ENMT: external ear and nose normal, oropharynx normal Neck: trachea midline, no thyromegaly normal visual inspection Respiratory: normal respiratory effort, lungs clear to auscultation no respiratory distress Cardiovascular: RRR, no murmur, no edema Gastrointestinal (Abdomen): Inspection/Auscultation: abdomen normal to in spection and normal bowel sounds; abdomen not distended Percussion/Palpation: abdomen soft; abdomen nontender, no guarding and abdomen not rigid Musculoskeletal: no cyanosis or clubbing, extremities motor strength 5/5 Skin: no rashes, warm and dry Neurologic: moves all extremities and awake Psychiatric: Orientation: alert, oriented to person and cooperative Results & Data Results & Data ([facility]) Vital Signs (Past 12 Hours) Vital Signs Temp Pulse Resp BP Pulse Ox 05/03/20 16:27 36.4 C L 50 L 17 138/79 97 05/03/20 07:45 36.8 C 50 L 18 143/84 H 100 PG Care Time/CCT Total # of Minutes Spent Total Time Spent with Patient: Total time spent is greater than 50% in coordination of care (as documented) at patient's floor/unit and/or counseling patient: Coding Level of Care Code 95826 Subseq Hosp Care Lvl 2 Diagnoses Abdominal pain R10.9 Transaminitis R74.01 Type 2 diabetes mellitus E11.9 Pneumonia due to COVID-19 virus U07.1; J12.89 Hypertension I10 Dyslipidemia E78.5 DVT prophylaxis Z29.9
[2020-05-04] MEDS: INSULIN ASPART 100 UNITS/ML 3 ML PEN SC SCH ×2 (08:34→13:22)
[2020-05-04] MEDS: POLYETHYLENE (MIRALAX) 17 GM PACK PO SCH (08:35)
[2020-05-04] MEDS: ENOXAPARIN INJ 40 MG/0.4 ML SYR SQ SCH (08:35)
[2020-05-04] MEDS: amLODIPine BESYLATE 5 MG TAB PO SCH (08:36)
[2020-05-04] MEDS: PANTOprazole 40 MG TAB PO SCH (08:36)
[2020-05-04] MEDS: CEROVITE ADV FORMULA TAB PO SCH (08:36)
--- NOTE | 2020-05-04 17:41 | Discharge Summary ---
Date of Service May 04, 2020 Admission HPI Per Admitting Provider abnormal laboratoriesThe patient is a 65-year-old male with a past medical history including BPH, obesity, dyslipidemia, hypertension, osteoarthritis, reactive airways disease, and diabetes mellitus type 2. He presents with symptoms as noted above. He cannot associate them with food intake. He received several doses of Dilaudid in the ED without change in his pain. Work-up in the emergency department included abnormal laboratories: Glucose 116, AST 161, ALT 307, urine specific gravity > 1.045, and COVID-[address] scan of abdomen and pelvis with contrast showed rounded patchy groundglass opacities in the periphery of the lung bases bilaterally typical mild COVID-19 pneumonia. There was slight biliary duct prominence postcholecystectomy. There was mild sigmoid diverticulosis without inflammation. Principal Diagnosis Covid-19 ileus Discharge Exam Constitutional WD/WN, vitals as above Eyes EOM intact bilaterally; no conjunctival abnormality ENMT external ear and nose normal, oropharynx normal Neck trachea midline, no thyromegaly normal visual inspection Respiratory normal respiratory effort, lungs clear to auscultation no respiratory distress Cardiovascular RRR, no murmur, no edema Gastrointestinal (Abdomen) Inspection/Auscultation: abdomen normal to inspection and normal bowel sounds; abdomen not distended Percussion/Palpation: abdomen soft; abdomen nontender, no guarding and abdomen not rigid Musculoskeletal no cyanosis or clubbing, extremities motor strength 5/5 Skin no rashes, warm and dry Neurologic moves all extremities and awake Psychiatric Orientation: alert, oriented to person and cooperative Discharge Data Allergies Allergy/AdvReac Type Severity Reaction Status Date / Time ketorolac Allergy Intermediate FACIAL Verified 04/30/20 02:08 SWELLING,RASH Penicillins Allergy Mild RASH Verified 04/30/20 02:08 Cipro Allergy Unknown HIVES Verified 03/20/14 07:25 ciprofloxacin Allergy Unknown HIVES Verified 04/30/20 02:08 levofloxacin [From Levaquin] AdvReac Intermediate nausea, Unverified 04/30/20 02:08 tremor codeine AdvReac Unknown "SICK AND Verified 04/30/20 02:08 LIGHTHEADED" morphine AdvReac Unknown "SICK AND Verified 04/30/20 02:08 LIGHTHEADED" Consultations 04/30/20 03:40 ED Decision to Admit Stat 04/30/20 05:57 Consult Gastroenterology Routine Ordered Studies 04/30/20 01:17 CT abd pelvis IV con only Urgent 04/30/20 09:43 MR MRCP Stat Hospital Course (1) Abdominal pain: CT a/p on 04/30 without obvious issue. However, he acted like an SBO/ileus with no BM and no passing gas. Possibly functional ileus from Covid? All biliary imaging including MRCP on 04/30 was normal. - Plan for colonoscopy with GI in 4-6 weeks for hematochezia after acute issues resolve. - Continue PPI - Appreciate GI consult - No further inpatient follow-up given stability/improvement. - KUB on 05/02 without obvious ileus or SBO. No pain, nausea, or emesis. Moved to normal diet on 05/03. Likely discharge tomorrow if he continues to feel well. - By discharge, eating well and having BMs. No further needs. (2) Transaminitis: Followed by GI for this. No biliary pathology noted. Presumed Covid/viral hepatitis. - Improving - Can get repeat LFTs in 2-3 weeks with PCP to ensure resolution. (3) Type 2 diabetes mellitus: A1c was 6.9% this admission. - Hold metformin. - Sliding scale insulin - Blood sugars generally 90 to 130 in last 24 hours. (4) Pneumonia due to COVID-19 virus: Pneumonia due to COVID-19 virus without hypoxia. - No indication for dexamethasone, remdesivir, or plasma given pulmonary stability. - Continue isolation precautions. - Isolate until 05/13/2019. (5) Hypertension: BP is 140/80 today. - Continue amlodipine - Hold aspirin and losartan/HCTZ (6) Dyslipidemia: - Hold statin for 2-3 weeks per GI (7) DVT prophylaxis: Lovenox 40 mg SQ daily Total Time Total Time Spent Total Time Spent (In Minutes): 35 Discharge Plan Discharge Items Patient Disposition: Home - Self-Care Reason For Visit: PNEUMONIA DUE TO COVID-19 INFECTION, TRANSAMINITIS Discharge Diagnosis: Covid-19 infection Activity: Resume your previous activity Non-emergency contact: Primary Care Provider Call non-emergency contact if: your symptoms worsen and your temperature is above 101 Follow-up/Referrals: Shawn Gonzales DO [Primary Care Provider] - Diet: Regular Addtl Attending Provider Instructions: You were admitted with stomach pain from Covid-19. Luckily, your breathign has been good and it has not affected your lungs! This is good! With a few days of IV fluids, your stomach pain improved, and your GI track started working again. Please do NOT leave your house until May 13. You will no longer be infectious then and can not spread coronavirus to other people. Please have friend/neighbors/family drop off groceries, etc. You should not go out into the public until May 13. Pending Studies at Discharge: No Stand-Alone Forms: [facility], Work/School Release (Inpt), Smoking Cessation Medications and DC Order Prescriptions: Continued amlodipine 10 mg tablet 10 mg PO DAILY Qty: 90 RF: 3 losartan-hydrochlorothiazide 100-25 mg tablet 1 tab PO DAILY Qty: 90 RF: 3 atorvastatin 10 mg tablet 10 mg PO DAILY Qty: 90 RF: 3 metformin 500 mg tablet extended release 24 hr 500 mg PO QPM Qty: 90 RF: 3 aspirin [Adult Aspirin Regimen] 81 mg tablet,delayed release (DR/EC) 81 mg PO DAILY RF: 0 geriatric [id number] Tablet 1 tab PO DAILY RF: 0 Discharge Orders: Discharge Order (Routine); Ordered 05/04/20 Ordered By: Kevon Stafford/Other Patient Handouts: High Blood Sugar (Hyperglycemia), Hypoglycemia (Low Blood Sugar), Managing Type 2 Diabetes Admission Data Admit Date/Time: 04/30/20 04:44 Attending Provider: Kevon Wilder Admit Provider: Hal Brown Primary Care Provider: Shawn Gonzales Other Providers: Juan Torres ; Kevon Wilder Other Interventions: Discharge Summary Assessment (RN) Last Done: 05/04/20 13:44 Coding Level of Care Code D/C Day Management >30 mins Diagnoses Abdominal pain R10.9 Transaminitis R74.01 Type 2 diabetes mellitus E11.9 Pneumonia due to COVID-19 virus U07.1; J12.89 Hypertension I10 Dyslipidemia E78.5 DVT prophylaxis Z29.9
== END 2020-05-04 14:00 | disposition home or self-care (01) | DRG 177 ==
LOC: ED 00:58 → SUATTDRO 04:44 → 3E 04:44